=== PATIENT | male | born 1965 | race Caucasian/White ===

== ENCOUNTER 2020-01-27 13:49 | Emergency (ER) | payer BC, SELFPAY ==
[2020-01-27 13:50] VITALS: BP 123/80; PULSE 98; RESP 17; TEMP 36.6; O2SAT 97; BMI 28.1
--- NOTE | 2020-01-27 14:31 | ED.VIS.GEN ---
History of Present Illness Chief Complaint: Allergic Reaction Informant: Patient Narrative: Patient is a 54-year-old male who presents to the emergency department for suspected allergic reaction. He developed a rash earlier today mostly around his waist but has been over his arms and around his lips. He did have a similar episode last month that was treated with prednisone. He does not recall any new exposures. He felt short of breath at the initial onset but this has since gone away. No issues handling secretions. His rash is itchy. He denies any abdominal pain or nausea/vomiting. He has not tried taking anything for this yet. No chest pain. No diarrhea. No urinary symptoms. Denies any headache or neck stiffness. Past Medical History - Allergies and Home Meds Allergies/Adverse Reactions: Allergies No Known Allergies Allergy (Verified 01/27/20 13:50) Primary Care Physician: Yeny Young MD [STAFF PHYSICIAN] - 3-5 Days Prior records reviewed: Yes Past Medical History: - - Restless leg syndrome Review of Systems All systems negative except as indicated General: Denies: Chills, Fever, Sweats Eyes: Denies: Visual changes - bilaterally, Diplopia ENT: Denies: Rhinorrhea, Sore throat Cardiovascular: Denies: Chest pain, Palpitations Respiratory: Denies: Dyspnea, Cough, Dyspnea on exertion Gastrointestinal: Denies: Abdominal pain, Nausea, Vomiting, Diarrhea Genitourinary: Denies: Dysuria, Hematuria, Frequency Musculoskeletal: Denies: Back pain, Extremity Pain Skin: Reports: Rash. Denies: Wounds Neurological: Denies: Headache, Weakness, Numbness Allergy: Reports: Swelling of the mouth. Denies: Swelling of the tongue Physical Exam Vital Signs/Narrative: Vital Signs Temp Pulse Resp BP Pulse Ox 01/27/20 13:50 97.8 F 98 17 123/80 H 97 General: Well nourished, Well developed, No Acute Distress Head: Normocephalic, Atraumatic Eyes: Perrl, EOMI ENT: Moist mucous membranes, No rhinorrhea Neck: Supple, Nontender Cardiovascular: Regular rate, Regular rhythm, No murmurs Respiratory: No distress, CTA bilaterally, Chest nontender, - - Mild swelling of upper and lower lips. No oropharyngeal involvement. No stridor. Abdomen: Soft, Nontender, Nondistended, Normal bowel sounds Back: Nontender, Normal Inspection Extremities: Nontender, No edema Skin: Normal color, Rash - Erythematous raised rash around the waistband bilaterally. Also has a few spots of the upper extremities and back. Erythema surrounding the lips. Neurological: Alert, Oriented x3, Cranial nerves II-XII grossly intact, Normal Strength, Normal Sensation Psychological: Normal affect, Normal Mood Diagnostic/Tx/Re-eval - Medical Decision Making Patient presents to the ED for rash and lip swelling. It is itching. No known new exposures. Upon arrival to the emerge department vital signs within normal limits. He is not in any acute distress. No evidence of anaphylaxis. Will give a dose of Benadryl and steroid here in the ED. Will discharge home with similar treatment. Warning signs and symptoms for which to return to the ED are reviewed with him. He understands and is agreeable this plan. He does not have a PCP so he was provided one from the no doc list. Patient observed in the ED for over an hour and did not have any worsening symptoms. He does feel comfortable being discharged home at this time. He is to monitor for evidence of new exposures if he has any repeat symptoms. ED Disposition - Plan for ED Patient: Disposition: Home or Assisted Living Diagnosis: Allergic reaction Instructions: ED General Allergic Reactions Prescriptions: Prednisone 40 mg PO DAILY 4 Days #8 tab Prescription Printed Referrals: Yeny Young MD [STAFF PHYSICIAN] - 3-5 Days
[2020-01-27 14:36] VITALS: BP 123/80; PULSE 98; RESP 17; TEMP 36.6; O2SAT 97
[2020-01-27] MEDS: predniSONE 20 MG Tablet 40 MG PO (14:40)
[2020-01-27] MEDS: DiphenhydrAMINE 12.5 MG/5 ML UDC 25 MG PO (14:40)
[2020-01-27 14:46] VITALS: RESP 16
[2020-01-27 15:28] VITALS: BP 118/62; PULSE 71; RESP 15; O2SAT 98
== END 2020-01-27 15:30 | disposition home or self-care (01) ==
PROVIDERS: Emergency Provider Emergency Medicine
DX: T78.40XA Allergy, unspecified, initial encounter (principal); X58.XXXA Exposure to other specified factors, initial encounter
CPT/HCPCS: 87635; 99283; U0003

== ENCOUNTER → 2020-02-21 16:31 | Outpatient (CLI) | payer BC, SELFPAY ==
[2020-01-27 13:50] VITALS: BMI 28.1
--- NOTE | 2020-02-21 16:46 | RAD_ITS ---
STUDY: X-RAY - LEFT HAND REASON FOR EXAM: Male, 54 years old. LEFT HAND PAIN IN KNUCKLES TECHNIQUE: 3 view(s) of the hand. COMPARISON: None. FINDINGS: Normal radiocarpal articulation. Normal distal radioulnar joint. Normal visualized carpal bones. Normal carpal articulations Normal carpometacarpal articulation of the thumb. Normal second through fifth carpometacarpal joints. Normal metacarpi. Normal metacarpophalangeal joint of the thumb. Normal interphalangeal joint of the thumb. Normal proximal and distal phalanges of the thumb. Normal metacarpophalangeal joints of the second through fifth fingers. Normal proximal and distal interphalangeal joints of the second through fifth fingers. Normal phalanges of the second through fifth fingers. The soft tissue structures are unremarkable. RAD/Hand Min 3 Views IMPRESSION: Normal x-ray examination of the hand. Electronically Signed: Tobias Dinh MD at 17:00 EDT Tel , Service support ,
--- NOTE | 2020-02-21 16:48 | RAD_ITS ---
STUDY: X-RAY - RIGHT HAND REASON FOR EXAM: Male, 54 years old. RIGHT HAND PAIN IN KNUCKLES TECHNIQUE: 3 view(s) of the hand. COMPARISON: None. FINDINGS: Normal radiocarpal articulation. Normal distal radioulnar joint. Normal visualized carpal bones. Normal carpal articulations Normal carpometacarpal articulation of the thumb. Normal second through fifth carpometacarpal joints. Normal metacarpi. Normal metacarpophalangeal joint of the thumb. Normal interphalangeal joint of the thumb. Normal proximal and distal phalanges of the thumb. Normal metacarpophalangeal joints of the second through fifth fingers. Normal proximal and distal interphalangeal joints of the second through fifth fingers. Normal phalanges of the second through fifth fingers. The soft tissue structures are unremarkable. RAD/Hand Min 3 Views IMPRESSION: Normal x-ray examination of the hand. Electronically Signed: Tobias Dinh MD at 17:01 EDT Tel , Service support ,
[2020-02-21 17:08] LABS: Absolute Lymphocyte Count 1.31 X10^3/uL (0.83-4.51); Absolute Neutrophil Count 3.9 X10^3/uL (2.0-7.7); Basophil# 0.02 X10^3/uL; Basophil% 0.4 % (0-1); Eosinophil# 0.08 X10^3/uL; Eosinophils% 1.4 % (0-5); Hemoglobin 13.6 g/dL (13.0-16.5); Lymphocyte # 1.31 X10^3/ul (4.0); Lymphocyte % 23.1 % (19-41); Mean Corp Hgb Conc 31.6 g/dL (32-36); Mean Corpuscular Hgb 30.6 pg (27.0-32.0); Mean Corpuscular Volume 96.8 fL (80-94); Mean Platelet Vol. 10.6 fl (6.2-12.0); NRBC Flagged by Analyzer 0 % (0-5); Neutrophil # 3.86 X10^3/uL (2.7-7.7); Neutrophil % 67.9 % (47-70); Platelet Count 239 K/mm3 (150-450); RBC Distribution Width CV 12.8 % (11.6-14.6); RBC Distribution Width SD 45.4 fl (35.1-43.9); Red Blood Count 4.44 M/mm3 (4.6-6.2); White Blood Count 5.7 K/mm3 (4.4-11.0)
[2020-02-21 17:35] LABS: ALB/GLOB Ratio 1.2 RATIO (0.9-2.4); AST(SGOT) 14 U/L (15-37); Alanine Aminotransfer ALT/SGPT 34 U/L (16-61); Albumin, Serum 3.9 g/dL (3.2-5.0); Alkaline Phosphatase 95 U/L (45-117); Anion Gap 6 (5-15); BUN 12 mg/dL (7-18); BUN/Creat Ratio 11.4 RATIO (10-20); Calcium,Total 8.5 mg/dL (8.5-10.1); Chloride 106 mmol/L (98-107); Creatinine, Serum 1.05 mg/dL (0.70-1.30); EST Glomerular Filtration Rate 78 mL/min (>60); Est Glom Filt Rate - Afr Amer 95 mL/min (>60); Globulin 3.2 g/dL (2.2-4.2); Glucose 97 mg/dL (74-106); Potassium 3.7 mmol/L (3.5-5.1); Protein, Total 7.1 g/dL (6.4-8.2); Sodium Level 142 mmol/L (136-145); Thyroid Stim Hormone (TSH) 0.76 uIU/mL (0.358-3.74); Uric Acid 4.1 mg/dL (3.5-7.2)
== END ==
LOC: POLAB3 16:32 → RAD 16:46
PROVIDERS: PCP Family Medicine Geriatric Medicine; Referring Provider Family Medicine Geriatric Medicine; Visit Provider Family Medicine Geriatric Medicine
DX: M79.642 Pain in left hand (principal); M79.641 Pain in right hand; M10.9 Gout, unspecified; R53.83 Other fatigue; N39.0 Urinary tract infection, site not specified
CPT/HCPCS: 36415; 73130; 80053; 84443; 84550; 85025; 87086

== ENCOUNTER → 2020-04-12 16:30 | Outpatient (CLI) | payer BC, SELFPAY | PROVIDERS: PCP Family Medicine Geriatric Medicine; Referring Provider Family Medicine Geriatric Medicine; Visit Provider Family Medicine Geriatric Medicine | DX: R06.89 Other abnormalities of breathing (principal) | CPT/HCPCS: 87633; 87635; C9803; U0003 ==

== ENCOUNTER 2020-08-22 10:19 | Day surgery (SDC) | payer BC, SELFPAY ==
[2020-08-22] VITALS (7 sets, daily range): BP systolic 115–130; BP diastolic 80–85; PULSE 65–81; RESP 16; TEMP 36.2–37.1; O2SAT 97–100; BMI 24.7
[2020-08-22] MEDS: Lactated Ringers 1,000 ML 100 ML IV (11:14)
[2020-08-22] MEDS: Cefazolin 2 GM in 0.9% Normal Saline 100 ML IV (11:57)
--- NOTE | 2020-08-22 12:03 | HP.PCM_ITS ---
Problem List (1) Right ureteral calculus Status: Acute History of Present Illness Date of Admission: 08/22/20 Chief Complaint: Right ureteral calculi The patient is a 54 year old male with a obstructing right ureteral calculus today presents for ureteroscopy laser lithotripsy and stent placement. Past Medical History Allergies No Known Allergies Allergy (Verified 08/22/20 10:46) Home Medications: Ambulatory Orders Medication Instructions Recorded Allopurinol [Zyloprim] 300 mg PO DAILY 01/27/20 Aspirin [Aspirin, Baby] 81 mg PO DAILY@0800 01/27/20 Bupropion HCl [Bupropion Xl] 300 mg PO DAILY 01/27/20 Nam/D3/Mag11/Zinc/Hydraulic Design Engineer/Yury/Bor 1 ea PO BID 01/27/20 [Caltrate 600+D Plus Tablet] Citalopram [Celexa] 40 mg PO QHS 01/27/20 Sildenafil Citrate 100 mg PO PRN PRN 01/27/20 Topiramate 200 mg PO QHS 01/27/20 Tamsulosin HCl [Flomax] 0.4 mg PO DAILY 08/20/20 traZODone [Desyrel] 100 mg PO QHS 08/20/20 Surgical History: no surgical history Smoking Status: Never smoker Tobacco Use: Non-smoker Review of Systems Constitutional: Denies: Chills, Fever, Weight Change HEENT: Denies: Head Aches, Sinus Congestion, Sinus Drainage Cardiovascular: Denies: Chest Pain, Palpitations Respiratory: Denies: Cough, Shortness of breath at rest, Sputum production Gastrointestinal: Denies: Abdominal Pain, Nausea, Vomiting Genitourinary: Denies: Dysuria Musculoskeletal: Denies: Joint Pain, Joint Tenderness Skin: Denies: Rash, Wounds Neurological: Denies: Numbness, Tingling, Focal weakness Psychiatric: Denies: Anxiety, Depression, Homicidal Ideations, Suicidal Ideations Hematologic/ Lymphatic: Denies: Easy Bruising, Easy Bleeding VTE Information - Inpt Only VTE Present on Admission: No - Physical Exam Vitals/I&O's: Vital Signs Temp Pulse Resp BP Pulse Ox 98.7 F 81 16 128/80 H 98 08/22/20 10:50 08/22/20 10:50 08/22/20 10:50 08/22/20 10:50 08/22/20 10:50 Oxygen Delivery Method Room Air Weight: 74 kg Body Mass Index (BMI) 24.7 General: Alert, Oriented x3, Cooperative HEENT: Atraumatic, PERRLA, EOMI, Normocephalic Neck: Supple, No JVD, Negative Carotid Bruits Lungs: Clear to auscultation, Normal air movement Cardiovascular: Regular rate, No murmurs Abdomen: Bowel Sounds Present, Soft, Non Tender Extremities: No edema, Capillary Refill Less than 3 Seconds Skin: No rashes, No breakdown Musculoskeletal: No Tenderness to Palpation of Joints or Extremities Neurological: Cranial nerves II-XII grossly intact Psych/Mental Status: Normal Affect, Appropriate Microbiology Past 72 Hours 08/21/20 14:00 Interface Orders SARS-CoV-2 Antigen (Rapid) - Final Current Medications Cefazolin Sodium 2 gm/ Sodium (Chloride) 110 mls @ 150 mls/hr IV PREOP ONE Stop: 08/22/20 13:23 Lactated Ringer's () 1,000 mls @ 100 mls/hr IV .Q10H GARDEN[place] Last Admin: 08/22/20 11:14 Dose: 100 mls/hr Documented by: Assessment/Plan All Active Problems Right ureteral calculus (Acute) Plan to proceed with right ureteroscopy laser lithotripsy of stone and stent placement.
[2020-08-22] MEDS: Ketorolac 15 MG/ML Vial IV (12:06)
--- NOTE | 2020-08-22 12:07 | DCINST_ITS ---
Discharge Diet: No Restrictions Discharge Activity: Return to Normal Activity, May Not Drive - for 2 days. Additional Activity Instructions:: Please be aware that pain medications may cause nausea. You should typically eat light foods as you take your pain medication. Pain medication may cause constipation, if this is a problem for you, please discuss with your doctor. Allergies/Adverse Reactions: Allergies No Known Allergies Allergy (Verified 08/22/20 10:46) Medications to take at Discharge Allopurinol [Zyloprim] 300 mg PO DAILY 01/27/20 Aspirin [Aspirin, Baby] 81 mg PO DAILY@0800 01/27/20 Bupropion HCl [Bupropion Xl] 300 mg PO DAILY 01/27/20 Nam/D3/Mag11/Zinc/Fare Enforcement Officer/Yury/Bor [Caltrate 600+D Plus Tablet] 1 ea PO BID 01/27/20 Citalopram [Celexa] 40 mg PO QHS 01/27/20 Sildenafil Citrate 100 mg PO PRN PRN 01/27/20 Topiramate 200 mg PO QHS 01/27/20 Tamsulosin HCl [Flomax] 0.4 mg PO DAILY 08/20/20 traZODone [Desyrel] 100 mg PO QHS 08/20/20 Ciprofloxacin [Cipro] 500 mg PO BID #6 tab 08/22/20 Hydrocodone Bitart/Apap 5-325 [Oneco 5MG-325MG] 1 tablet PO Q4H PRN PRN 7 Days #14 tablet 08/22/20 The following prescriptions were given: Ciprofloxacin [Cipro] 500 mg PO BID #6 tab Transmission Status: Pending to [address] Hydrocodone Bitart/Apap 5-325 [Oneco 5MG-325MG] 1 tablet PO Q4H PRN PRN 7 Days #14 tablet PRN Reason: Pain Transmission Status: Received by [facility] Primary Care Physician: Shelton Galarza Chi, MD [Primary Care Provider] - Test Results: Test results from this visit will be discussed in further detail at your follow- up appointment, if applicable. Please Follow Up With: Juan Rojo MD When: please call to make an appointment.
--- NOTE | 2020-08-22 13:11 | OP.PCM_ITS ---
Problem List (1) Right ureteral calculus Status: Acute Report of Operation Date of Procedure: 08/22/20 Pre-Operative Diagnosis: Right ureteral calculi and right renal calculi Post-Operative Diagnosis: Same Surgery/Procedure Performed:: Cystoscopy, balloon dilation of the right ureter, retrograde pyelogram on the right side, right ureteroscopy laser lithotripsy of stones and right stent placement. Description of Surgical Findings:: This is a patient who presents to the hospital for treatment for an obstructing distal ureter calculi. I discussed with the patient how the surgery would be performed and we reviewed the risks and benefits of the surgery. The risk and benefits include the risk of failure to remove the stone completely and that the patient may need multiple procedures. We discussed the risk of an infection, the risk of bleeding. We discussed the very rare risk of serious complicated injury to the ureter. The patient understands that if the stone is not able to be removed safely that we may abort the procedure and place a stent. After full discussion and all questions address with the patient the consent form was signed the side was marked appropriately and the patient was taken back to the operating room for the procedure. The patient was taken back to the operating room. After induction of anesthesia by the anesthesiology team the patient was placed in dorsolithotomy position. The genitals were prepped and draped in usual sterile fashion. I went into the bladder with a 21 Romansh rigid cystourethroscope through the urethra. Upon entering the bladder I inspected the trigone the left and right ureteral orifice and the bladder itself. I then cannulated the right ureteral orifice and advanced a 0.038 Glidewire up into the kidney. Then over the Glidewire I advanced a 5 Fr Ureteral catheter and performed a retrograde pyelogram with about 10cc of contrast, to delineate the anatomy and identify the stone location. Then a ureteral balloon dilator was advanced over the wire and the distal ureter was balloon dilated with a 12 Fr x 5cm balloon dilator. After 3 minutes of dilating the ureter the balloon was backloaded off the 0.038 glidewir e then the safety wire was left in place. I then placed a second 0.038 Guidewire as a working wire and over the working 0.038 guidewire I went in with a Flexible 7.9fr ureteroscope. I was able to go inside with the 7.9Fr flexible utereroscope and I pulled out the working guidewire and then through the 7.9 fr flexible ureteroscope I ascended up the ureter with direct visualization until the stone was located, then I engaged the stone with laser lithotripsy using a 270miron laser fiber with energy setting of 6 Hertz and 0.6 J until the stone was lasered into tiny little pieces that should pass on their own. I also went up to the kidney and found another large stone and lasered the stone into little tiny pieces using the laser fiber energy settings were 10 Hz and 0.8 J., And then I worked my way down the ureter and we had the laser some more stones along the ureter, I removed the flexible ureteroscope and then went up with a semirigid ureteroscope and lasered some stones in the distal ureter. After successful laser lithotripsy of the stone and stone fragements, a retrograde pyelogram was performed with 10cc of contrast and no extravasation of contrast or perforation was identified in the ureter. I then backed out of the ureter left the wire in place and then over the 0.038 guidewire I placed a double coiled pigtail ureteral stent. The ureteral stent was advanced over the 0.038 guidewire under direct fluoroscopic guidance and direct cystoscopic visual guidance, once the stent was in good position I pulled the wire and the stent coiled in the kidney and bladder in good position. I then drained the patient's bladder and the cystoscope was removed and the patient was taken back to the recovery room in good position. The patient was given discharge instructions to call the office for instructions on when to come to the office to have the stent removed. Type of Anesthesia:: General Drains: stent right side - Admit VTE Documentation VTE Present on Admission: No VTE Mechan Device Prophylaxis: SCD's
[2020-08-22] MEDS: HYDROcodone Bitartrate/Apap 5/325 Tablet PO (15:16)
== END 2020-08-22 15:55 | disposition home or self-care (01) ==
LOC: SDC 10:19 → AC 10:19
PROVIDERS: PCP Family Medicine Geriatric Medicine; Referring Provider Urology; Visit Provider Urology
PROC: 0TJ98ZZ Inspection of Ureter, Via Natural or Artificial Opening Endoscopic (ICD-10-PCS; CPT 52352; principal; 2020-08-22 12:30)
DX: N13.2 Hydronephrosis with renal and ureteral calculous obstruction (principal); E78.00 Pure hypercholesterolemia, unspecified; G25.81 Restless legs syndrome; F32.9 Major depressive disorder, single episode, unspecified; F41.9 Anxiety disorder, unspecified; R01.1 Cardiac murmur, unspecified; Z20.822 Contact with and (suspected) exposure to COVID-19; Z79.82 Long term (current) use of aspirin; Z79.899 Other long term (current) drug therapy
CPT/HCPCS: 52356; 76000; 87426; C9803; J7120; C1758; C1769; C2617; J2405

== ENCOUNTER → 2020-08-27 14:55 | Outpatient (CLI) | payer BC, SELFPAY ==
[2020-08-22 10:50] VITALS: BMI 24.7
[2020-08-27 15:51] LABS: Absolute Lymphocyte Count 1.05 X10^3/uL (0.83-4.51); Absolute Neutrophil Count 5.3 X10^3/uL (2.0-7.7); Basophil# 0.03 X10^3/uL; Basophil% 0.4 % (0-1); Eosinophil# 0.09 X10^3/uL; Eosinophils% 1.3 % (0-5); Hematocrit 41.8 % (40-54); Hemoglobin 13.3 g/dL (13.0-16.5); Lymphocyte # 1.05 X10^3/ul (0.83-4.51); Lymphocyte % 15.4 % (19-41); Mean Corp Hgb Conc 31.8 g/dL (32-36); Mean Corpuscular Hgb 30.9 pg (27.0-32.0); Mean Platelet Vol. 11.1 fl (6.2-12.0); Monocyte# 0.32 X10^3/uL; Monocyte% 4.7 % (0-10); NRBC Flagged by Analyzer 0 % (0-5); Neutrophil # 5.32 X10^3/uL (2.7-7.7); Neutrophil % 78.1 % (47-70); Platelet Count 280 K/mm3 (150-450); RBC Distribution Width SD 43.7 fl (35.1-43.9); Red Blood Count 4.31 M/mm3 (4.6-6.2); White Blood Count 6.8 K/mm3 (4.4-11.0)
[2020-08-27 16:07] LABS: ALB/GLOB Ratio 1.1 RATIO (0.9-2.4); AST(SGOT) 8 U/L (15-37); Alanine Aminotransfer ALT/SGPT 25 U/L (16-61); Albumin, Serum 3.5 g/dL (3.2-5.0); Alkaline Phosphatase 101 U/L (45-117); Anion Gap 6 (5-15); BUN 12 mg/dL (7-18); Calcium,Total 8.9 mg/dL (8.5-10.1); Chloride 108 mmol/L (98-107); Creatinine, Serum 1.09 mg/dL (0.70-1.30); EST Glomerular Filtration Rate 75 mL/min (>60); Est Glom Filt Rate - Afr Amer 90 mL/min (>60); Globulin 3.2 g/dL (2.2-4.2); Glucose 94 mg/dL (74-106); Potassium 3.6 mmol/L (3.5-5.1); Protein, Total 6.7 g/dL (6.4-8.2); Sodium Level 140 mmol/L (136-145); Thyroid Stim Hormone (TSH) 0.16 uIU/mL (0.358-3.74); Uric Acid 3.4 mg/dL (3.5-7.2)
[2020-08-28 09:46] LABS: T3 Uptake 38 % (33-40); T4 Free Direct 0.99 ng/dL (0.76-1.46)
== END ==
PROVIDERS: PCP Family Medicine Geriatric Medicine; Visit Provider Family Medicine Geriatric Medicine
DX: F52.8 Other sexual dysfunction not due to a substance or known physiological condition (principal); M10.9 Gout, unspecified; R53.83 Other fatigue; E03.9 Hypothyroidism, unspecified
CPT/HCPCS: 36415; 80053; 84403; 84439; 84443; 84479; 84550; 85025

== ENCOUNTER → 2021-02-25 14:57 | Outpatient (CLI) | payer BC, SELFPAY ==
[2021-02-25 16:27] LABS: Absolute Lymphocyte Count 1.67 X10^3/uL (0.83-4.51); Basophil# 0.04 X10^3/uL; Basophil% 0.6 % (0-1); Eosinophil# 0.11 X10^3/uL; Eosinophils% 1.5 % (0-5); Hemoglobin 13.7 g/dL (13.0-16.5); Lymphocyte # 1.67 X10^3/ul (0.83-4.51); Mean Corp Hgb Conc 31.9 g/dL (32-36); Mean Corpuscular Volume 97.3 fL (80-94); Mean Platelet Vol. 11.3 fl (6.2-12.0); Monocyte# 0.44 X10^3/uL; Monocyte% 6.1 % (0-10); NRBC Flagged by Analyzer 0 % (0-5); Neutrophil # 4.95 X10^3/uL (2.7-7.7); Neutrophil % 68.2 % (47-70); Platelet Count 228 K/mm3 (150-450); RBC Distribution Width SD 46.7 fl (35.1-43.9); Red Blood Count 4.42 M/mm3 (4.6-6.2); White Blood Count 7.3 K/mm3 (4.4-11.0)
[2021-02-25 17:28] LABS: ALB/GLOB Ratio 1.1 RATIO (0.9-2.4); AST(SGOT) 8 U/L (15-37); Alanine Aminotransfer ALT/SGPT 23 U/L (16-61); Albumin, Serum 3.6 g/dL (3.2-5.0); Alkaline Phosphatase 111 U/L (45-117); Anion Gap 6 (5-15); BUN 12 mg/dL (7-18); BUN/Creat Ratio 10.2 RATIO (10-20); Calcium,Total 8.7 mg/dL (8.5-10.1); Chloride 109 mmol/L (98-107); Creatinine, Serum 1.18 mg/dL (0.70-1.30); EST Glomerular Filtration Rate 68 mL/min (>60); Est Glom Filt Rate - Afr Amer 82 mL/min (>60); Globulin 3.3 g/dL (2.2-4.2); Glucose 100 mg/dL (74-106); PSA,Total - Annual Screen 2.75 ng/mL (0.00-4.00); Potassium 3.6 mmol/L (3.5-5.1); Protein, Total 6.9 g/dL (6.4-8.2); Sodium Level 142 mmol/L (136-145); Thyroid Stim Hormone (TSH) 0.51 uIU/mL (0.358-3.74); Uric Acid 4.2 mg/dL (3.5-7.2)
== END ==
PROVIDERS: PCP Family Medicine Geriatric Medicine; Visit Provider Family Medicine Geriatric Medicine
DX: R53.83 Other fatigue (principal); F52.8 Other sexual dysfunction not due to a substance or known physiological condition; M10.9 Gout, unspecified; Z12.5 Encounter for screening for malignant neoplasm of prostate
CPT/HCPCS: 36415; 80053; 84153; 84403; 84443; 84550; 85025; G0103

== ENCOUNTER → 2021-04-18 16:31 | Outpatient (CLI) | payer BC, SELFPAY ==
--- NOTE | 2021-04-18 16:33 | RAD_ITS ---
STUDY: X-RAY CHEST REASON FOR EXAM: Male, 55 years old. CHEST PAIN TECHNIQUE: PA and lateral views of the chest. COMPARISON: None. FINDINGS: The lungs are clear and expanded. There is no demonstrated pleural abnormality. Normal size heart. Normal mediastinum and rhonda. Normal visualized pulmonary arteries. Normal visualized aortic arch and descending thoracic aorta. Normal visualized thoracic spine. Normal visualized ribs, clavicles, and shoulders. There is no demonstrated abnormality of the visualized soft tissue structures of the upper abdomen. RAD/Chest PA and Lateral IMPRESSION: Normal x-ray examination of the chest. Electronically Signed: Tobias Dinh MD at 17:03 EST Tel , Service support ,
== END ==
PROVIDERS: PCP Family Medicine Geriatric Medicine; Referring Provider Family Medicine Geriatric Medicine; Visit Provider Family Medicine Geriatric Medicine
DX: R07.9 Chest pain, unspecified (principal)
CPT/HCPCS: 71046

== ENCOUNTER 2021-06-27 14:39 | Outpatient (CLI) | payer BC, SELFPAY ==
[2021-06-27 15:38] LABS: Absolute Lymphocyte Count 1.95 X10^3/uL (0.83-4.51); Absolute Neutrophil Count 3.6 X10^3/uL (2.0-7.7); Basophil# 0.03 X10^3/uL; Basophil% 0.5 % (0-1); Eosinophil# 0.13 X10^3/uL; Eosinophils% 2.1 % (0-5); Hematocrit 38.6 % (40-54); Lymphocyte # 1.95 X10^3/ul (0.83-4.51); Lymphocyte % 32.1 % (19-41); Mean Corp Hgb Conc 33.7 g/dL (32-36); Mean Corpuscular Hgb 31.9 pg (27.0-32.0); Mean Corpuscular Volume 94.8 fL (80-94); Mean Platelet Vol. 11.3 fl (6.2-12.0); Monocyte% 6.6 % (0-10); NRBC Flagged by Analyzer 0 % (0-5); Neutrophil # 3.55 X10^3/uL (2.7-7.7); Neutrophil % 58.4 % (47-70); Platelet Count 190 K/mm3 (150-450); RBC Distribution Width CV 13.2 % (11.6-14.6); RBC Distribution Width SD 46.5 fl (35.1-43.9); Red Blood Count 4.07 M/mm3 (4.6-6.2); White Blood Count 6.1 K/mm3 (4.4-11.0)
[2021-06-27 15:58] LABS: Anion Gap 4 (5-15); BUN 14 mg/dL (7-18); BUN/Creat Ratio 15.2 RATIO (10-20); Calcium,Total 8.5 mg/dL (8.5-10.1); Chloride 112 mmol/L (98-107); Creatinine, Serum 0.92 mg/dL (0.70-1.30); EST Glomerular Filtration Rate 90 mL/min (>60); Est Glom Filt Rate - Afr Amer 109 mL/min (>60); Glucose 101 mg/dL (74-106); Potassium 3.5 mmol/L (3.5-5.1); Sodium Level 141 mmol/L (136-145)
== END 2021-06-27 23:59 | disposition home or self-care (01) ==
LOC: POLAB3 14:40
PROVIDERS: PCP Family Medicine Geriatric Medicine; Visit Provider Family Medicine Geriatric Medicine
DX: R19.7 Diarrhea, unspecified (principal); N39.0 Urinary tract infection, site not specified
CPT/HCPCS: 36415; 80048; 85025; 87086

== ENCOUNTER 2021-07-26 12:48 | Outpatient (CLI) | payer BC, SELFPAY ==
--- NOTE | 2021-07-26 13:45 | RAD_ITS ---
STUDY: X-RAY - ABDOMEN/PELVIS REASON FOR EXAM: Male, 55 years old. NAUSEA AND SOME VOMITTING. HX OF KIDNEY STONES. TECHNIQUE: Two AP supine views of the abdomen and pelvis. COMPARISON: None. FINDINGS: Normal visualized lung bases. There is an unremarkable bowel gas pattern. There is no demonstrated free abdominal air. The visualized liver, spleen are grossly normal in size and morphology. There is a 6 mm calcific opacity at lower pole of the left kidney suggesting a stone. Normal soft tissue structures. Normal visualized osseous structures. RAD/Abdomen Single View IMPRESSION: Left kidney stone measures 6 mm. Electronically Signed: Marko Rob MD at 23:08 EDT ,
--- NOTE | 2021-07-26 13:45 | RAD_ITS ---
STUDY: X-RAY CHEST REASON FOR EXAM: Male, 55 years old. COUGH, SOB AND NAUSEA TECHNIQUE: Frontal and lateral views of the chest. COMPARISON: 04/18/2021. FINDINGS: There is a calcified granuloma in the right middle lobe measures 5 mm. Is stable since the previous study There is no demonstrated pleural abnormality. Normal size heart. Normal mediastinum and rhonda. Normal visualized pulmonary arteries. Normal visualized aortic arch and descending thoracic aorta. Normal visualized thoracic spine. Normal visualized ribs, clavicles, and shoulders. There is no demonstrated abnormality of the visualized soft tissue structures of the upper abdomen. RAD/Chest PA and Lateral IMPRESSION: Normal x-ray examination of the chest. Electronically Signed: Marko Rob MD at 23:14 EDT ,
--- NOTE | 2021-07-27 08:07 | PFT ---
INTRODUCTION: The patient is a 55-year-old male who presents for pulmonary function studies secondary to a diagnosis of shortness of breath. Respiratory therapy reported good patient effort. Bronchodilators were used during testing. INTERPRETATION: Forced expiration spirometry demonstrates no evidence of a large airways obstructive ventilatory defect. There was no significant response to aerosolized bronchodilators. Spirograms are of good quality and plateau normally. Body plethysmography was performed and reveals lung volumes to be within normal limits. Diffusing capacity by single breath CO is likewise within normal limits. IMPRESSION: Grossly normal pulmonary function studies.
== END 2021-07-26 23:59 | disposition home or self-care (01) ==
PROVIDERS: PCP Family Medicine Geriatric Medicine; Referring Provider Family Medicine Geriatric Medicine; Visit Provider Family Medicine Geriatric Medicine
DX: R05.9 Cough, unspecified (principal); R11.0 Nausea; R06.02 Shortness of breath
CPT/HCPCS: 71046; 74018; 94060; 94726; 94729

== ENCOUNTER → 2021-08-23 | Outpatient (CLI) | payer BC, SELFPAY ==
--- NOTE | 2021-08-23 12:52 | CT_ITS ---
INDICATION: CALCULUS OF KIDNEY EXAMINATION: CT ABDOMEN AND PELVIS WITHOUT CONTRAST - CT Abdomen And Pelvis W/O Contrast Injection TECHNIQUE: Helically acquired images were obtained of the abdomen and pelvis without oral or IV contrast. A radiation dose optimization technique was used for this scan. IV Contrast dosage and agent: None. Oral contrast: None. COMPARISON: None. FINDINGS: LOWER CHEST: Focal calcifications visualized in the left lower lung field, no evidence of focal lung infiltrates or consolidation. . No cardiomegaly or pericardial effusion. LIVER: Homogeneous. No focal mass. GALLBLADDER AND BILIARY TREE: No calcified gallstones. No gallbladder distension or wall edema. No intra- or extrahepatic biliary ductal dilation. PANCREAS: No focal cystic or solid mass. SPLEEN: Normal size without focal cystic or solid mass. ADRENAL GLANDS: No nodules. KIDNEYS AND URETERS: 0.7 cm calcification/stone visualized in the lower pole of the left kidney. 0.3 cm calcification visualized in the upper pole of the left kidney. Normal renal size and position. No hydronephrosis. PERITONEUM: No ascites or free air. No other fluid collection. BOWEL: No evidence of acute appendicitis. No stomach or bowel distension. No focal inflammatory change. LYMPH NODES: No enlarged mesenteric or retroperitoneal lymph nodes. VESSELS: Aorta is non-dilated. URINARY BLADDER: Unremarkable. REPRODUCTIVE ORGANS: Prominent prostate gland is visualized with subtle scattered calcifications. ABDOMINAL WALL: No discrete abdominal or pelvic wall hernia. With subtle bilateral inguinal hernias seen. BONES: No lytic or blastic abnormality. CT/Abdomen/Pelvis without Cont IMPRESSION: No evidence of hydronephrosis or hydroureter. 0.3 cm calcification visualized in the upper pole of the left kidney. 0.7 cm calcification/stone visualized in the lower pole of the left kidney. Prominence of the prostate gland seen. Electronically Signed: Darin Torres MD at 15:49 EDT Reading Location ID and State: [facility] / [place] Tel , Service support ,
== END | disposition home or self-care (01) ==
PROVIDERS: PCP Family Medicine Geriatric Medicine; Visit Provider Urology
DX: N20.0 Calculus of kidney (principal)
CPT/HCPCS: 74176

== ENCOUNTER → 2021-08-29 | Outpatient (CLI) | payer BC, SELFPAY ==
[2021-08-29 14:52] LABS: Absolute Lymphocyte Count 1.77 X10^3/uL (0.83-4.51); Absolute Neutrophil Count 4.5 X10^3/uL (2.0-7.7); Basophil# 0.03 X10^3/uL; Basophil% 0.4 % (0-1); Eosinophil# 0.15 X10^3/uL; Eosinophils% 2.2 % (0-5); Hematocrit 40.9 % (40-54); Hemoglobin 13.4 g/dL (13.0-16.5); Lymphocyte # 1.77 X10^3/ul (0.83-4.51); Lymphocyte % 25.6 % (19-41); Mean Corp Hgb Conc 32.8 g/dL (32-36); Mean Corpuscular Hgb 31.6 pg (27.0-32.0); Mean Corpuscular Volume 96.5 fL (80-94); Mean Platelet Vol. 11.2 fl (6.2-12.0); Monocyte# 0.43 X10^3/uL; Monocyte% 6.2 % (0-10); NRBC Flagged by Analyzer 0 % (0-5); Neutrophil % 65.2 % (47-70); Platelet Count 211 K/mm3 (150-450); RBC Distribution Width CV 13.2 % (11.6-14.6); RBC Distribution Width SD 47.7 fl (35.1-43.9); Red Blood Count 4.24 M/mm3 (4.6-6.2); White Blood Count 6.9 K/mm3 (4.4-11.0)
[2021-08-29 15:18] LABS: ALB/GLOB Ratio 1.3 RATIO (0.9-2.4); AST(SGOT) 10 U/L (15-37); Alanine Aminotransfer ALT/SGPT 27 U/L (16-61); Albumin, Serum 3.6 g/dL (3.2-5.0); Alkaline Phosphatase 92 U/L (45-117); Anion Gap 4 (5-15); BUN 14 mg/dL (7-18); BUN/Creat Ratio 11.9 RATIO (10-20); Calcium,Total 8.1 mg/dL (8.5-10.1); Chloride 111 mmol/L (98-107); Creatinine, Serum 1.18 mg/dL (0.70-1.30); EST Glomerular Filtration Rate 68 mL/min (>60); Est Glom Filt Rate - Afr Amer 82 mL/min (>60); Globulin 2.8 g/dL (2.2-4.2); Glucose 120 mg/dL (74-106); Potassium 3.3 mmol/L (3.5-5.1); Protein, Total 6.4 g/dL (6.4-8.2); Sodium Level 142 mmol/L (136-145); Thyroid Stim Hormone (TSH) 0.79 uIU/mL (0.358-3.74); Uric Acid 4.5 mg/dL (3.5-7.2)
== END | disposition home or self-care (01) ==
LOC: POLAB3 13:23
PROVIDERS: PCP Family Medicine Geriatric Medicine; Visit Provider Family Medicine Geriatric Medicine
DX: F52.8 Other sexual dysfunction not due to a substance or known physiological condition (principal); M10.9 Gout, unspecified; R53.83 Other fatigue
CPT/HCPCS: 36415; 80053; 84403; 84443; 84550; 85025

== ENCOUNTER → 2021-09-12 | Outpatient (CLI) | payer BC, SELFPAY ==
--- NOTE | 2021-09-12 10:44 | EKG12_ITS ---
Test Reason : PREOP Blood Pressure : / mmHG Vent. Rate : 075 BPM Atrial Rate : 075 BPM P-R Int : 174 ms QRS Dur : 112 ms QT Int : 402 ms P-R-T Axes : 051 013 036 degrees QTc Int : 448 ms Normal sinus rhythm Nonspecific T wave abnormality Abnormal ECG Confirmed by MUSA XIAO, ANDRE ([id number]), medical transcription editor RENO TAYLOR ([id number]) on 09/13/2021 11:46:23 AM Referred By: Juan Rojo Confirmed By:ANDRE VIGIL MD
[2021-09-12 11:57] LABS: Hematocrit 41.4 % (40-54); Hemoglobin 13.2 g/dL (13.0-16.5); Mean Corp Hgb Conc 31.9 g/dL (32-36); Mean Corpuscular Hgb 31.1 pg (27.0-32.0); Mean Corpuscular Volume 97.4 fL (80-94); Mean Platelet Vol. 11.1 fl (6.2-12.0); Platelet Count 238 K/mm3 (150-450); RBC Distribution Width CV 13.2 % (11.6-14.6); RBC Distribution Width SD 47.4 fl (35.1-43.9); Red Blood Count 4.25 M/mm3 (4.6-6.2); White Blood Count 7.4 K/mm3 (4.4-11.0)
[2021-09-12 12:16] LABS: Anion Gap 4 (5-15); BUN 16 mg/dL (7-18); BUN/Creat Ratio 15.1 RATIO (10-20); Calcium,Total 8.7 mg/dL (8.5-10.1); Chloride 114 mmol/L (98-107); Creatinine, Serum 1.06 mg/dL (0.70-1.30); EST Glomerular Filtration Rate 77 mL/min (>60); Est Glom Filt Rate - Afr Amer 93 mL/min (>60); Glucose 86 mg/dL (74-106); Potassium 3.4 mmol/L (3.5-5.1); Sodium Level 144 mmol/L (136-145)
== END | disposition home or self-care (01) ==
PROVIDERS: PCP Family Medicine Geriatric Medicine; Referring Provider Urology; Visit Provider Urology
DX: Z01.810 Encounter for preprocedural cardiovascular examination (principal); Z01.812 Encounter for preprocedural laboratory examination; Z20.822 Contact with and (suspected) exposure to COVID-19
CPT/HCPCS: 36415; 80048; 85027; 87426; 93005; C9803

== ENCOUNTER 2021-09-20 17:49 | Observation (INO) | payer BC, SELFPAY ==
[2021-09-20] VITALS (7 sets, daily range): BP systolic 103–121; BP diastolic 70–79; PULSE 61–82; RESP 14–20; TEMP 36.3; O2SAT 89–98; BMI 27.3
--- NOTE | 2021-09-20 18:01 | NURSING ---
Called [facility] to inquire if they were aware of pt coming as a direct admit. They confirmed he will be directly admitted to [id number]. noc analyst Stacy made aware.
--- NOTE | 2021-09-20 20:10 | EDS_ITS ---
HPI History of Present Illness Chief Complaint: Shortness of Breath Informant: patient Onset/Context/Timing Onset: Today Context: gradual Timing: Continuous Quality: Positive for Dyspnea on exertion Worsened by: Exertion Relieved by: Oxygen Associated Symptoms cough; Negative for rhinorrhea, ear pain, fever, sore throat, chills, clear sputum, white sputum, yellow sputum or green sputum Chest Pain: Positive for Tightness Narrative Narrative: Patient presents with shortness of breath that began today. Patient states that it came on gradually. Patient had lithotripsy done this morning and was having some shortness of breath after that. Patient states he had COVID last winter and has had some problems with breathing intermittently since that time. Patient admits to a cough but denies any sputum production. Patient denies any fevers or chills. Patient denies any sore throat or rhinorrhea. Patient admits to some tightness in his chest. [facility] Medical History (Updated 09/20/21 @ 23:[address] Fransisco Sun, DO) Anxiety and depression BPH (benign prostatic hyperplasia) COVID Kidney stone Overactive bladder Rotator cuff arthropathy of left shoulder Sleep apnea Home Medications allopurinol 300 mg PO DAILY 01/27/20 [History Last Taken 09/19/21 11:30] aspirin 81 mg PO DAILY@0800 01/27/20 [History Last Taken 09/19/21 11:30] bupropion HCl 300 mg PO DAILY 01/27/20 [History Last Taken 09/19/21 11:30] [id number] 1 ea PO BID 01/27/20 [History Last Taken 09/19/21 11:30] citalopram 40 mg PO QHS 01/27/20 [History Last Taken 09/19/21 23:50] topiramate 200 mg PO QHS 01/27/20 [History Last Taken 09/19/21 23:30] tamsulosin 0.4 mg PO DAILY 08/20/20 [History Last Taken 09/19/21 11:30] trazodone 100 mg PO QHS 08/20/20 [History Last Taken 09/19/21 23:30] Allergy/AdvReac Type Severity Reaction Status Date / Time anti-inflammatory AdvReac Hives Uncoded 09/20/21 18:32 Surgical History (Updated 09/20/21 @ 20:[address] Fransisco Sun DO) Hx of lithotripsy Social History Smoking Status: Never smoker ROS ROS ED Constitutional Constitutional ED: Denies chills or fever(s) Eyes Eyes: Denies blurry vision or change in vision ENT ENT ED: Denies rhinorrhea or sore throat Cardiovascular Cardiovascular: Reports chest pain; Denies palpitations Respiratory/Chest Respiratory/Chest: Reports cough and dyspnea Gastrointestinal Gastrointestinal: Denies nausea or vomiting Genitourinary Genitourinary ED: Denies dysuria or hematuria Musculoskeletal Musculoskeletal: Reports back pain; Denies neck pain Integumentary Denies abscess or rash Neurologic Neurologic: Denies headache(s) or weakness Allergic/Immunologic Allergic/Immunologic ED: Denies mouth swelling or urticaria EXAM Physical Exam Const Vital Signs: 09/20/21 17:50 09/20/21 19:18 09/20/21 19:20 Temperature 97.3 F L Temperature Source Temporal Pulse Rate 61 77 Respiratory Rate 14 18 Respiratory Effort Short of Breath Respiratory Depth Normal Respiratory Pattern Normal Blood Pressure 104/70 121/75 H Blood Pressure Mean 81 90 Pulse Ox 89 95 Oxygen Delivery Method Room Air Room Air Room Air Oxygen Flow Rate (L/min) 09/20/21 20:21 09/20/21 20:24 09/20/21 21:22 Temperature Temperature Source Pulse Rate 77 82 Respiratory Rate 20 H 20 H Respiratory Effort Normal Short of Breath Respiratory Depth Normal Respiratory Pattern Normal Blood Pressure 119/79 Blood Pressure Mean 92 Pulse Ox 96 96 Oxygen Delivery Method Nasal Cannula Nasal Cannula Nasal Cannula Oxygen Flow Rate (L/min) 2 2 2 09/20/21 23:07 Temperature Temperature Source Pulse Rate 78 Respiratory Rate 16 Respiratory Effort Respiratory Depth Respiratory Pattern Blood Pressure 103/78 Blood Pressure Mean 86 Pulse Ox 98 Oxygen Delivery Method Room Air Oxygen Flow Rate (L/min) Positive well nourished and well developed General Appearance ED: well developed and NAD HEENT Reports moist mucous membranes Neck supple and no JVD Resp normal respiratory effort Auscultation: diminished lung sounds diffuse Cardio regular rate and regular rhythm GI non-tender Palpation: soft Neuro oriented x3, CN's II-XII intact bilaterally and no sensory deficits noted Sensorium / Orientation: alert Motor Exam: strength 5/5 throughout Psych mental status grossly normal MDM MDM MDM Narrative Medical decision making narrative: Portable chest x-ray was obtained. There is 1 view. On my interpretation, there is a left lower lobe infiltrate. Bony thorax is normal. There is no cardiomegaly. Radiologist also interpreted the x-rays and agrees. CBC was within normal limits. D-dimer was normal. Comprehensive metabolic profile was within normal limits. High-sensitivity troponin was less than 3. Urinalysis shows hematuria but there is no evidence of urinary tract infection. Patient was given a DuoNeb aerosol here. Blood cultures were obtained. Patient was given Rocephin and Zithromax. I discussed case with Dr. Rojo since he did his surgery today. He would recommend having the patient go home on oral antibiotics. I attempted to ambulate the patient after his antibiotics were infused. His oxygen saturations dropped to 88% on room air while ambulating. Because of this, patient will need to be admitted to the hospital. Dr. Rojo was notified. He states he does not take care of pneumonia and recommended admitting the patient to the hospital. He stated that he did not want to be called back on this patient tonight. Case was discussed with the hospitalist. He will admit the patient for observation. Patient understood and was agreeable with the plan. All questions were answered. Lab Data Attestation: I reviewed the patient's lab results. Labs: Laboratory Results - last 24 hr 09/20/21 09/20/21 09/20/21 20:23 20:23 20:23 WBC 10.7 RBC 4.18 L Hgb 13.0 Hct 40.2 MCV 96.2 H MCH 31.1 MCHC 32.3 RDW Std Deviation 46.7 H RDW Coeff of She 13.2 Plt Count 219 MPV 11.2 Immature Gran % (Auto) 0.400 Neut % (Auto) 94.1 H Lymph % (Auto) 4.7 L [place] % (Auto) 0.7 Eos % (Auto) 0.0 Baso % (Auto) 0.1 Absolute Neuts (auto) 10.1 H Absolute Lymphs (auto) 0.51 L Nucleated RBC % 0 Differential Comment SCANNED D-Dimer Quant (PE/DVT) 0.30 Sodium 141 Potassium 4.6 Chloride 111 H Carbon Dioxide 24.0 Anion Gap 6 BUN 15 Creatinine 1.11 Estim Creat Clear Calc 71.89 Est GFR (MDRD) Af Amer 88 Est GFR (MDRD) Non-Af 73 BUN/Creatinine Ratio 13.5 Glucose 120 H Calcium 8.7 Total Bilirubin 0.40 AST 22 ALT 26 Alkaline Phosphatase 93 Troponin I High Sens < 3 L Total Protein 6.7 Albumin 3.4 Globulin 3.3 Albumin/Globulin Ratio 1.0 Urine Color Urine Clarity Urine pH Ur Specific [place] Urine Protein Urine Glucose (UA) Urine Ketones Urine Occult Blood Urine Nitrite Urine Bilirubin Urine Urobilinogen Ur Leukocyte Esterase Urine RBC Urine WBC Ur Squamous Epith Cells Amorphous Sediment Urine Bacteria Urine Mucus 09/20/21 21:00 WBC RBC Hgb Hct MCV MCH MCHC RDW Std Deviation RDW Coeff of She Plt Count MPV Immature Gran % (Auto) Neut % (Auto) Lymph % (Auto) [place] % (Auto) Eos % (Auto) Baso % (Auto) Absolute Neuts (auto) Absolute Lymphs (auto) Nucleated RBC % Differential Comment D-Dimer Quant (PE/DVT) Sodium Potassium Chloride Carbon Dioxide Anion Gap BUN Creatinine Estim Creat Clear Calc Est GFR (MDRD) Af Amer Est GFR (MDRD) Non-Af BUN/Creatinine Ratio Glucose Calcium Total Bilirubin AST ALT Alkaline Phosphatase Troponin I High Sens Total Protein Albumin Globulin Albumin/Globulin Ratio Urine Color [place]ora Urine Clarity Cloudy Urine pH 7.0 Ur Specific [place] 1.010 Urine Protein 30 H Urine Glucose (UA) Normal Urine Ketones 5 H Urine Occult Blood 250 H Urine Nitrite Negative Urine Bilirubin Negative Urine Urobilinogen Normal Ur Leukocyte Esterase 25 H Urine RBC > 100 SEEN Urine WBC 0-5 SEEN Ur Squamous Epith Cells 0-5 SEEN Amorphous Sediment 1+ PHOS Urine Bacteria RARE Urine Mucus 0 SEEN Radiography Chest X-Ray - ED: 1 View, Read by ED Physician, Read by Radiologist and Left Infiltrate Diagnostic Testing: Clinical Impression(s) from Imaging Studies Chest X-Ray 09/20/21 20:52 IMPRESSION: Hazy increased density left lower lung may be due to pneumonia, edema, or atelectasis. Electronically Signed: David Rodriguez MD at 21:15 EDT , Discharge Plan Dx/Rx/DC Orders Clinical Impression: Pneumonia, Hypoxia Disposition Disposition: Acute Care Hospital [facility]
[2021-09-20] MEDS: Ipratropium/Albuterol Sulfate 3 ML AMPUL.NEB INHALATION (20:24)
[2021-09-20 20:37] LABS: Absolute Lymphocyte Count 0.51 X10^3/uL (0.83-4.51); Absolute Neutrophil Count 10.1 X10^3/uL (2.0-7.7); Basophil# 0.01 X10^3/uL; Basophil% 0.1 % (0-1); Hematocrit 40.2 % (40-54); Lymphocyte # 0.51 X10^3/ul (0.83-4.51); Lymphocyte % 4.7 % (19-41); Mean Corp Hgb Conc 32.3 g/dL (32-36); Mean Corpuscular Hgb 31.1 pg (27.0-32.0); Mean Corpuscular Volume 96.2 fL (80-94); Mean Platelet Vol. 11.2 fl (6.2-12.0); Monocyte# 0.07 X10^3/uL; Monocyte% 0.7 % (0-10); NRBC Flagged by Analyzer 0 % (0-5); Neutrophil # 10.11 X10^3/uL (2.7-7.7); Neutrophil % 94.1 % (47-70); POSITIVE DIFFERENTIAL YES; Platelet Count 219 K/mm3 (150-450); RBC Distribution Width CV 13.2 % (11.6-14.6); RBC Distribution Width SD 46.7 fl (35.1-43.9); Red Blood Count 4.18 M/mm3 (4.6-6.2); White Blood Count 10.7 K/mm3 (4.4-11.0)
[2021-09-20 20:43] LABS: Differential Indicated SCAN CRITERIA MET
--- NOTE | 2021-09-20 20:52 | RAD_ITS ---
EXAM: XR CHEST, 1 VIEW CLINICAL INDICATION: Dyspnea TECHNIQUE: Frontal view of the chest. This report was created using [email or web address] report generation technology. COMPARISON: 07/26/2021. FINDINGS: LUNGS AND PLEURAL SPACES: Hazy increased density left lower lung may be due to pneumonia, edema, or atelectasis. Low lung volumes limit the exam. No pneumothorax. No effusion. HEART: Unremarkable. Cardiac silhouette not enlarged. MEDIASTINUM: Central airways and mediastinal contour are unremarkable. BONES/JOINTS: Unremarkable. SOFT TISSUES: Unremarkable. RAD/Chest 1 View (Portable) IMPRESSION: Hazy increased density left lower lung may be due to pneumonia, edema, or atelectasis. Electronically Signed: David Rodriguez MD at 21:15 EDT ,
[2021-09-20 21:05] LABS: Mucous, Urine 0 SEEN /hpf (<or=2+)
[2021-09-20 21:12] LABS: AST(SGOT) 22 U/L (15-37); Alanine Aminotransfer ALT/SGPT 26 U/L (16-61); Albumin, Serum 3.4 g/dL (3.2-5.0); Alkaline Phosphatase 93 U/L (45-117); Anion Gap 6 (5-15); BUN 15 mg/dL (7-18); BUN/Creat Ratio 13.5 RATIO (10-20); Calcium,Total 8.7 mg/dL (8.5-10.1); Chloride 111 mmol/L (98-107); Creatinine, Serum 1.11 mg/dL (0.70-1.30); EST Glomerular Filtration Rate 73 mL/min (>60); Est Glom Filt Rate - Afr Amer 88 mL/min (>60); Estimated Creatinine Clearance 71.89 ml/min; Globulin 3.3 g/dL (2.2-4.2); Glucose 120 mg/dL (74-106); Potassium 4.6 mmol/L (3.5-5.1); Protein, Total 6.7 g/dL (6.4-8.2); Sodium Level 141 mmol/L (136-145); Troponin-I HS < 3 pg/mL (3.0-78.0)
[2021-09-20 21:14] LABS: Color, Urine Amber (Yellow); Glucose, Dipstick Normal (Normal); Ketone-Dipstick 5 mg/dl (Negative); Leukocyte Esterase-Dipstick 25 /ul (Negative); Nitrite-Dipstick Negative (Negative); Occult Blood-Urine 250 /ul (Negative); Protein-Dipstick 30 mg/dl (Negative); Urine Bilirubin Dipstick Negative (Negative); Urine Clarity Cloudy (Clear); Urine Urobilinogen Normal (Normal)
[2021-09-20 21:14] LABS: Differential Comment SCANNED
[2021-09-20 21:25] LABS: Red Blood Cells-Urine > 100 SEEN /hpf (0-5); Squamous Epithelial Cells - UA 0-5 SEEN /hpf (0-5); White Blood Cells 0-5 SEEN /hpf (0-5)
[2021-09-20 21:26] LABS: Amorphous Sediment 1+ PHOS; Bacteria RARE /hpf (None Seen)
[2021-09-21] VITALS (9 sets, daily range): BP systolic 105–132; BP diastolic 68–86; PULSE 76–82; RESP 15–20; TEMP 36.7–37.3; O2SAT 92–96; BMI 26.9
[2021-09-21] MEDS: Morphine 4 MG/ML Syringe IV (01:04)
--- NOTE | 2021-09-21 01:08 | PCM.HP.STD ---
HPI - General General Date of Admission: 09/21/21 Date of Service: 09/21/21 Chief Complaint: Shortness of breath, hypoxia HPI Narrative DANY MAGUIRE, is a 56 M who presents to the emergency [facility] for evaluation of hypoxia after a lithotripsy was performed today by Dr. Rojo. Patient has had a history of shortness of breath over the last several months since he had COVID in May 2021, his latest chest x-ray that was done a few months ago did not show any abnormality however. Patient did not complain of any fevers or chills Work-up in the emergency room included a CBC which was unremarkable, chemistry profile was remarkable for a chloride of 111, patient's urinalysis showed over 100 red blood cells, rare bacteria, and 0-5 WBCs. Patient had a chest x-ray performed which showed a hazy increased density in the left lower lobe which could be secondary to pneumonia, edema, or atelectasis. Patient was afebrile in the emergency room, his pulse ox on room air at rest was 95%, on ambulation, his pulse ox dropped to 88% according to the emergency room physician. Patient will be placed in observation status for left lower lobe pneumonia, he will be given aerosol treatments, he will be maintained on IV Zithromax and Rocephin, he will be evaluated tomorrow-I suspect that he may not need oxygen on ambulation tomorrow and could be discharged home on oral antibiotics. [facility] Medical History (Updated 09/20/21 @ 23:[address] Fransisco Sun, DO) Anxiety and depression BPH (benign prostatic hyperplasia) COVID Kidney stone Overactive bladder Rotator cuff arthropathy of left shoulder Sleep apnea Home Medications allopurinol 300 mg PO DAILY 01/27/20 [History Last Taken 09/19/21 11:30] aspirin 81 mg PO DAILY@0800 01/27/20 [History Last Taken 09/19/21 11:30] bupropion HCl 300 mg PO DAILY 01/27/20 [History Last Taken 09/19/21 11:30] [id number] 1 ea PO BID 01/27/20 [History Last Taken 09/19/21 11:30] citalopram 40 mg PO QHS 01/27/20 [History Last Taken 09/19/21 23:50] topiramate 200 mg PO QHS 01/27/20 [History Last Taken 09/19/21 23:30] tamsulosin 0.4 mg PO DAILY 08/20/20 [History Last Taken 09/19/21 11:30] trazodone 100 mg PO QHS 08/20/20 [History Last Taken 09/19/21 23:30] Allergy/AdvReac Type Severity Reaction Status Date / Time anti-inflammatory AdvReac Hives Uncoded 09/20/21 18:32 Surgical History (Updated 09/20/21 @ 20:[address] Fransisco Sun DO) Hx of lithotripsy Social History Smoking Status: Never smoker ROS Constitutional Constitutional: Denies anorexia, change in weight, fever(s), night sweats or weakness Eyes Eyes: Denies blurry vision, change in vision, discharge from eye(s) or eye pain Cardiovascular Cardiovascular: Denies chest pain, claudication, edema or palpitations Respiratory/Chest Respiratory/Chest: Reports shortness of breath with exertion; Denies hemoptysis or shortness of breath at rest Gastrointestinal Gastrointestinal: Denies abdominal pain, constipation, diarrhea, hematemesis, hematochezia, melena, nausea or vomiting Genitourinary Genitourinary: Denies dysuria, hematuria, urinary frequency, urinary hesitancy, urinary incontinence or urinary urgency Musculoskeletal Musculoskeletal: Denies back pain, joint pain, joint stiffness, joint swelling, myalgias or neck pain Neurologic Neurologic: Denies abnormal gait, abnormal speech, dizziness, focal weakness, headache(s), loss of vision, numbness, other visual disturbances, paresthesias, syncope or tingling Psychiatric Psychiatric: Denies anxiety, cognitive impairment, depression, irritability, mood swings or suicidal ideation Endocrine Endocrinology: Denies change in body appearance, cold intolerance, excessive sweating, heat intolerance, polydipsia or polyuria Hematologic/Lymphatic Hematologic/Lymphatic: Denies none, anemia, easy bleeding, easy bruising or lymphadenopathy Allergic/Immunologic Allergic/Immunologic: Denies rhinitis, urticaria, eczemia or asthma Vital Signs Vital Signs Vital Signs: 09/20/21 17:50 09/20/21 19:18 09/20/21 19:20 Temperature 97.3 F L Temperature Source Temporal Pulse Rate 61 77 Respiratory Rate 14 18 Respiratory Effort Short of Breath Respiratory Depth Normal Respiratory Pattern Normal Blood Pressure 104/70 121/75 H Blood Pressure Mean 81 90 Pulse Ox 89 95 Oxygen Delivery Method Room Air Room Air Room Air Oxygen Flow Rate (L/min) 09/20/21 20:21 09/20/21 20:24 09/20/21 21:22 Temperature Temperature Source Pulse Rate 77 82 Respiratory Rate 20 H 20 H Respiratory Effort Normal Short of Breath Respiratory Depth Normal Respiratory Pattern Normal Blood Pressure 119/79 Blood Pressure Mean 92 Pulse Ox 96 96 Oxygen Delivery Method Nasal Cannula Nasal Cannula Nasal Cannula Oxygen Flow Rate (L/min) 2 2 2 09/20/21 23:07 09/21/21 01:00 Temperature 98.1 F Temperature Source Oral Pulse Rate 78 76 Respiratory Rate 16 15 Respiratory Effort Respiratory Depth Respiratory Pattern Blood Pressure 103/78 109/86 H Blood Pressure Mean 86 93 Pulse Ox 98 96 Oxygen Delivery Method Room Air Room Air Oxygen Flow Rate (L/min) Weight Weight: 81.647 kg Body Mass Index (BMI) 27.3 Physical Exam Const alert, oriented x3, no apparent distress, average body habitus, healthy appearing and well nourished General Appearance: cooperative, well kempt and well developed Orientation / Consciousness: awake, oriented to person, oriented to place and oriented to time HEENT normocephalic, head/scalp atraumatic, hearing grossly normal bilaterally and moist oral mucous membranes Eyes PERRL, EOMs intact bilaterally and conjunctivae normal Neck nuchal rigidity, supple, no JVD, thyroid normal and no carotid bruits General: trachea midline Resp normal respiratory effort, no retractions and no use of accessory muscles Auscultation: rales left base; Negative for rhonchi or wheezes Cardio regular rate, regular rhythm, S1 normal heart sound, S2 normal heart sound, no murmurs, no rub and no gallops GI normal to inspection, nondistended, normoactive bowel sounds, soft to palpation, non-tender and non-distended Extremity normal to inspection and no clubbing, cyanosis or edema Skin no rashes or lesions noted General Skin Exam: no breakdown Neuro oriented x3, CN's II-XII intact bilaterally, no focal motor deficits and no sensory deficits noted Sensorium / Orientation: awake and alert Speech: speech normal Psych affect normal Results Lab / Micro Data Result Diagrams: 09/20/21 20:23 09/20/21 20:23 Labs: Laboratory Results - last 24 hr 09/20/21 20:23: WBC 10.7, RBC 4.18 L, Hgb 13.0, Hct 40.2, MCV 96.2 H, MCH 31.1, MCHC 32.3, RDW Std Deviation 46.7 H, RDW Coeff of She 13.2, Plt Count 219, MPV 11.2, Immature Gran % (Auto) 0.400, Neut % (Auto) 94.1 H, Lymph % (Auto) 4.7 L, [place] % (Auto) 0.7, Eos % (Auto) 0.0, Baso % (Auto) 0.1, Absolute Neuts (auto) 10.1 H, Absolute Lymphs (auto) 0.51 L, Nucleated RBC % 0, Differential Comment SCANNED 09/20/21 20:23: D-Dimer Quant (PE/DVT) 0.30 09/20/21 20:23: Sodium 141, Potassium 4.6, Chloride 111 H, Carbon Dioxide 24.0, Anion Gap 6, BUN 15, Creatinine 1.11, Estim Creat Clear Calc 71.89, Est GFR (MDRD) Af Amer 88, Est GFR (MDRD) Non-Af 73, BUN/Creatinine Ratio 13.5, Glucose 120 H, Calcium 8.7, Total Bilirubin 0.40, AST 22, ALT 26, Alkaline Phosphatase 93, Troponin I High Sens < 3 L, Total Protein 6.7, Albumin 3.4, Globulin 3.3, Albumin/Globulin Ratio 1.0 09/20/21 21:00: Urine Color [place], Urine Clarity Cloudy, Urine pH 7.0, Ur Specific [place] 1.010, Urine Protein 30 H, Urine Glucose (UA) Normal, Urine Ketones 5 H, Urine Occult Blood 250 H, Urine Nitrite Negative, Urine Bilirubin Negative, Urine Urobilinogen Normal, Ur Leukocyte Esterase 25 H, Urine RBC > 100 SEEN, Urine WBC 0-5 SEEN, Ur Squamous Epith Cells 0-5 SEEN, Amorphous Sediment 1+ PHOS, Urine Bacteria RARE, Urine Mucus 0 SEEN Micro: Microbiology 09/20/21 20:25 Nasal Secretion SARS-CoV-2 & FLU Antigen (Rapid) - Final Radiology Impression Chest X-Ray 09/20/21 20:52 IMPRESSION: Hazy increased density left lower lung may be due to pneumonia, edema, or atelectasis. Electronically Signed: David Rodriguez MD at 21:15 EDT , Assessment & Plan Assessment/Plan (1) Pneumonia: PLAN: 1. Left lower lobe community-acquired pneumonia-patient will be placed in observation status on MedSurg, he will receive IV Rocephin and Zithromax, he will be reevaluated tomorrow, CBC will be repeated in the morning #2 hypoxia-this is mild and it is only on ambulation, patient will receive aerosol treatments, he will be reevaluated tomorrow for qualifications for oxygen, I suspect again that he may not need oxygen on discharge home. #3 status post right sided lithotripsy today #4 chronic depression-patient is on citalopram and Wellbutrin. #5 BPH-patient is on Flomax Charges/Coding Visit Charges OBSV E&M: 98144 Initial observation care L3
[2021-09-21] MEDS: Albuterol 2.5 MG/3 ML VIAL.NEB. INHALATION ×2 (07:20→13:38)
[2021-09-21 07:39] LABS: Absolute Lymphocyte Count 1.41 X10^3/uL (0.83-4.51); Absolute Neutrophil Count 10.8 X10^3/uL (2.0-7.7); Basophil# 0.02 X10^3/uL; Basophil% 0.2 % (0-1); Hematocrit 37.8 % (40-54); Hemoglobin 12.2 g/dL (13.0-16.5); Lymphocyte # 1.41 X10^3/ul (0.83-4.51); Lymphocyte % 10.8 % (19-41); Mean Corp Hgb Conc 32.3 g/dL (32-36); Mean Corpuscular Volume 96.2 fL (80-94); Mean Platelet Vol. 11.4 fl (6.2-12.0); Monocyte# 0.77 X10^3/uL; Monocyte% 5.9 % (0-10); NRBC Flagged by Analyzer 0 % (0-5); Neutrophil # 10.76 X10^3/uL (2.7-7.7); Neutrophil % 82.7 % (47-70); Platelet Count 192 K/mm3 (150-450); RBC Distribution Width CV 13.2 % (11.6-14.6); RBC Distribution Width SD 47.1 fl (35.1-43.9); Red Blood Count 3.93 M/mm3 (4.6-6.2)
[2021-09-21] MEDS: Aspirin 81 MG TAB.CHEW PO (08:30)
[2021-09-21] MEDS: buPROPion (XL) 300 MG TABLET.XL PO (08:30)
[2021-09-21] MEDS: Tamsulosin HCl 0.4 MG Capsule PO (08:30)
--- NOTE | 2021-09-21 09:37 | PCM.PN.BLA ---
Progress Note 56-year-old male status post outpatient ureteroscopy laser extraction of stone in the right ureter and no stent was placed, postop he was hypoxic so was transferred to the emergency room is admitted appears to have a pneumonia also has a history of COVID that may have caused some lung problems?. As of now he is clinically doing stable and from the standpoint of his kidney stone no he does not have a stent outpatient follow-up with me will be in 3 to 4 weeks for checkup and ultrasound of his kidney. Regarding his hypoxia and pneumonia leave this management per the medical service and discharge per them. Call me with questions
--- NOTE | 2021-09-21 11:55 | CASEMGMT ---
BRI BALDWIN NOTE: Plan is for pt to be discharged home today, as long as he does not need oxygen. BRI BALDWIN to room to discuss discharge planning. Pt sitting up in chair. On RA. His PCP is Dr Galarza and he sees Dr Rojo-urology. He has [place] insurance and has rx coverage. He states he lives w/his sig-other, Emily, in one-story home. He is independent, drives, and uses no DME to ambulate. He used to use a PAP @ [facility], but states he no longer needs it since he had significant weight-loss. He denies having any discharge/home-going needs or concerns. Emily's mom will take him home @ discharge. Rosalee CARSON RN CM
--- NOTE | 2021-09-21 15:07 | PCM.DC.SUM ---
Providers Date of Admission: 09/21/21 Primary Care Physician: Dr. Shelton Galarza MD Reason For Visit: LEFT LOWER LOBE PNEUMONIA, HYPOXIA Diagnosis Discharge Diagnosis (1) Pneumonia: Status: Acute Code(s): J18.9 - Pneumonia, unspecified organism Medications at Discharge Home Medications allopurinol 300 mg PO DAILY 01/27/20 aspirin 81 mg PO DAILY@0800 01/27/20 bupropion HCl 300 mg PO DAILY 01/27/20 citalopram 40 mg PO QHS 01/27/20 topiramate 200 mg PO QHS 01/27/20 tamsulosin 0.4 mg PO DAILY 08/20/20 trazodone 100 mg PO QHS 08/20/20 levofloxacin 750 mg PO DAILY #5 tab 09/21/21 Hospital Course Summary of Care Provided Minutes Spent on Discharge: 35 Hospital Course: Patient is a 56-year-old male with a past medical history as outlined was admitted through the ED on 09/21/2021 for hypoxia. Patient had a lithotripsy done on the day of admission and subsequently complained of hypoxia. He said he had been feeling short of breath since he had COVID in November 2021. He denied any cough, fever or chills, nausea vomiting. Chest x-ray showed a hazy increased density in the left lower lobe which could be secondary to pneumonia, edema or atelectasis. CBC and BMP were otherwise unremarkable. His saturation dropped to 88% on room air. He was admitted and managed for community-acquired pneumonia and he was placed on IV ceftriaxone and azithromycin. Patient shortness of breath resolved and he felt much better. He had walking pulse ox on 09/21/2021 which showed that he did not require any oxygen. He remained stable and was discharged home on 09/21/2021 on p.o. Levaquin 750 mg daily for 5 days. He is follow-up with his primary care doctor within 1 to 2 weeks. Patient was seen and examined prior to discharge. He had no active complaints and had an uneventful night. Review of systems otherwise negative. Labs and vitals reviewed. Home medication reviewed and reconciled. Physical Exam Const alert, oriented x3 and no apparent distress General Appearance: cooperative, comfortable and well kempt Orientation / Consciousness: awake Exam Limitations: no limitations HEENT normocephalic, head/scalp atraumatic, hearing grossly normal bilaterally and moist oral mucous membranes Eyes PERRL, EOMs intact bilaterally and conjunctivae normal Neck no lymphadenopathy Resp normal respiratory effort and no use of accessory muscles Resp Narrative: mildly diminished breath sounds bibasally, no wheezes, few crackles bilaterally. on room air. Cardio regular rate, regular rhythm, S1 normal heart sound, S2 normal heart sound and no murmurs GI normal to inspection, nondistended, normoactive bowel sounds, soft to palpation, non-tender and non-distended Extremity normal to inspection, full ROM and no clubbing, cyanosis or edema Skin no rashes or lesions noted Neuro oriented x3, CN's II-XII intact bilaterally and moves all extremities Sensorium / Orientation: awake and alert Psych affect normal Weight / BMI Weight Weight: 177 lb 7.554 oz Body Mass Index (BMI) 26.9 ABG / Lab / Microbiology Data Result Diagrams: 09/21/21 06:21 09/20/21 20:23 Laboratory: Laboratory Results - last 24 hr 09/20/21 20:23: WBC 10.7, RBC 4.18 L, Hgb 13.0, Hct 40.2, MCV 96.2 H, MCH 31.1, MCHC 32.3, RDW Std Deviation 46.7 H, RDW Coeff of She 13.2, Plt Count 219, MPV 11.2, Immature Gran % (Auto) 0.400, Neut % (Auto) 94.1 H, Lymph % (Auto) 4.7 L, [place] % (Auto) 0.7, Eos % (Auto) 0.0, Baso % (Auto) 0.1, Absolute Neuts (auto) 10.1 H, Absolute Lymphs (auto) 0.51 L, Nucleated RBC % 0, Differential Comment SCANNED 09/20/21 20:23: D-Dimer Quant (PE/DVT) 0.30 09/20/21 20:23: Sodium 141, Potassium 4.6, Chloride 111 H, Carbon Dioxide 24.0, Anion Gap 6, BUN 15, Creatinine 1.11, Estim Creat Clear Calc 71.89, Est GFR (MDRD) Af Amer 88, Est GFR (MDRD) Non-Af 73, BUN/Creatinine Ratio 13.5, Glucose 120 H, Calcium 8.7, Total Bilirubin 0.40, AST 22, ALT 26, Alkaline Phosphatase 93, Troponin I High Sens < 3 L, Total Protein 6.7, Albumin 3.4, Globulin 3.3, Albumin/Globulin Ratio 1.0 09/20/21 21:00: Urine Color [place], Urine Clarity Cloudy, Urine pH 7.0, Ur Specific [place] 1.010, Urine Protein 30 H, Urine Glucose (UA) Normal, Urine Ketones 5 H, Urine Occult Blood 250 H, Urine Nitrite Negative, Urine Bilirubin Negative, Urine Urobilinogen Normal, Ur Leukocyte Esterase 25 H, Urine RBC > 100 SEEN, Urine WBC 0-5 SEEN, Ur Squamous Epith Cells 0-5 SEEN, Amorphous Sediment 1+ PHOS, Urine Bacteria RARE, Urine Mucus 0 SEEN 09/21/21 06:21: WBC 13.0 H, RBC 3.93 L, Hgb 12.2 L, Hct 37.8 L, MCV 96.2 H, MCH 31.0, MCHC 32.3, RDW Std Deviation 47.1 H, RDW Coeff of She 13.2, Plt Count 192, MPV 11.4, Immature Gran % (Auto) 0.400, Neut % (Auto) 82.7 H, Lymph % (Auto) 10.8 L, [place] % (Auto) 5.9, Eos % (Auto) 0.0, Baso % (Auto) 0.2, Absolute Neuts (auto) 10.8 H, Absolute Lymphs (auto) 1.41, Nucleated RBC % 0 Microbiology: Microbiology 09/21/21 02:40 Urine, Clean Catch Legionella Antigen - Final 09/21/21 02:40 Urine, Clean Catch Streptococcus pneumoniae Antigen (M - Final 09/20/21 20:25 Nasal Secretion SARS-CoV-2 & FLU Antigen (Rapid) - Final Radiography Diagnostic Testing: Radiology Impression Chest X-Ray 09/20/21 20:52 IMPRESSION: Hazy increased density left lower lung may be due to pneumonia, edema, or atelectasis. Electronically Signed: David Rodriguez MD at 21:15 EDT , D/C Instructions Discharge Diet: Low fat / Low cholesterol Weight Bearing Status: Weight bearing as tolerated Call your doctor if you observe: Fever of 101 or Higher, Shortness of breath, Dizziness, Swelling in the ankles and Chest pain Meaningful Use Info Meaningful Use Diagnoses (Choose all that apply): None applicable Discharge Plan Admission Admit Date/Time: 09/21/21 01:37 Primary Reason for Your Visit: pneumonia Attending Provider: Alis Larson Primary Care Provider: Shelton Galarza [employer] Providers: Jordan Rico Instructions Patient Instructions: Pneumonia Discharge Orders/Prescriptions Prescriptions: New levofloxacin 750 mg tablet 750 mg PO DAILY Qty: 5 RF: 0 Continued citalopram 40 MG tablet 40 mg PO QHS RF: 0 aspirin 81 MG tablet,chewable 81 mg PO DAILY@0800 RF: 0 allopurinol 300 MG tablet 300 mg PO DAILY RF: 0 topiramate 100 MG tablet 200 mg PO QHS RF: 0 bupropion HCl 300 MG tablet extended release 24 hr 300 mg PO DAILY RF: 0 tamsulosin 0.4 MG capsule 0.4 mg PO DAILY RF: 0 trazodone 100 MG tablet 100 mg PO QHS RF: 0 Referrals / Follow Up: Shelton Galarza Chi, MD [Primary Care Provider] - Disposition Disposition (needs filled in before D/C Order can be placed): Home, Self Care Charges/Coding Visit Charges Inpatient E&M: 94481 Disch Hosp
== END 2021-09-21 16:29 | disposition home or self-care (01) ==
LOC: ED 23:56 → MS3 09-21 01:43
PROVIDERS: Admitting Provider Internal Medicine; Emergency Provider Emergency Medicine; PCP Family Medicine Geriatric Medicine; Visit Provider Student in an Organized Health Care Education/Training Program
DX: J18.9 Pneumonia, unspecified organism (principal); R09.02 Hypoxemia; Z86.16 Personal history of COVID-19; N40.0 Benign prostatic hyperplasia without lower urinary tract symptoms; G47.30 Sleep apnea, unspecified; F41.9 Anxiety disorder, unspecified; F32.A Depression, unspecified; Z79.899 Other long term (current) drug therapy; Z79.82 Long term (current) use of aspirin; N32.81 Overactive bladder
CPT/HCPCS: 36415; 71045; 80053; 81001; 84484; 85025; 85379; 87040; 87428; 87449; 94640; 94762; 96365; 96367; 96375; 99218; 99251; 99285; G0378; G0463; J0696

== ENCOUNTER → 2021-10-02 | Outpatient (CLI) | payer BC, SELFPAY ==
--- NOTE | 2021-10-02 14:16 | RAD_ITS ---
STUDY: X-RAY CHEST REASON FOR EXAM: Male, 56 years old. COUGH TECHNIQUE: PA and lateral views of the chest. COMPARISON: Previous chest radiographs of 09/20/2021 and 07/26/2021. FINDINGS: The previous noted left basilar infiltrates have resolved. There is minimal chronic linear scarring at the left lung base, unchanged as compared to prior study 07/26/2021.. No acute pulmonary infiltrates are identified. There is no demonstrated pleural abnormality. Normal size heart. Normal mediastinum and rhonda. Normal visualized pulmonary arteries. Stable mild elongation of the thoracic aorta. No hilar enlargement or mediastinal widening. No acute osseous abnormality. There is no demonstrated abnormality of the visualized soft tissue structures of the upper abdomen. RAD/Chest PA and Lateral IMPRESSION: Interval resolution of the left basilar infiltrates seen on the prior study of 09/20/2021. No acute cardiopulmonary disease process identified. Electronically Signed: Phill Fragoso MD at 2:27 EDT ,
== END | disposition home or self-care (01) ==
LOC: RAD 14:06
PROVIDERS: PCP Family Medicine Geriatric Medicine; Referring Provider Family Medicine Geriatric Medicine; Visit Provider Family Medicine Geriatric Medicine
DX: R05.9 Cough, unspecified (principal)
CPT/HCPCS: 71046

== ENCOUNTER → 2022-02-26 | Outpatient (CLI) | payer BC, SELFPAY ==
[2022-02-26 17:56] LABS: Absolute Lymphocyte Count 1.71 X10^3/uL (0.83-4.51); Absolute Neutrophil Count 5.4 X10^3/uL (2.0-7.7); Basophil# 0.03 X10^3/uL; Basophil% 0.4 % (0-1); Eosinophil# 0.11 X10^3/uL; Eosinophils% 1.4 % (0-5); Hematocrit 46.8 % (40-54); Hemoglobin 15.2 g/dL (13.0-16.5); Lymphocyte # 1.71 X10^3/ul (0.83-4.51); Lymphocyte % 22.2 % (19-41); Mean Corp Hgb Conc 32.5 g/dL (32-36); Mean Corpuscular Hgb 31.1 pg (27.0-32.0); Mean Corpuscular Volume 95.7 fL (80-94); Mean Platelet Vol. 11.6 fl (6.2-12.0); Monocyte# 0.48 X10^3/uL; Monocyte% 6.2 % (0-10); NRBC Flagged by Analyzer 0 % (0-5); Neutrophil # 5.37 X10^3/uL (2.7-7.7); Neutrophil % 69.5 % (47-70); Platelet Count 268 K/mm3 (150-450); RBC Distribution Width CV 12.6 % (11.6-14.6); RBC Distribution Width SD 44.6 fl (35.1-43.9); Red Blood Count 4.89 M/mm3 (4.6-6.2); White Blood Count 7.7 K/mm3 (4.4-11.0)
[2022-02-26 18:42] LABS: ALB/GLOB Ratio 1.2 RATIO (0.9-2.4); AST(SGOT) 9 U/L (15-37); Alanine Aminotransfer ALT/SGPT 30 U/L (16-61); Albumin, Serum 3.8 g/dL (3.2-5.0); Alkaline Phosphatase 105 U/L (45-117); Anion Gap 7 (5-15); BUN 13 mg/dL (7-18); BUN/Creat Ratio 9.6 RATIO (10-20); Calcium,Total 8.6 mg/dL (8.5-10.1); Chloride 107 mmol/L (98-107); Creatinine, Serum 1.35 mg/dL (0.70-1.30); EST Glomerular Filtration Rate 58 mL/min (>60); Est Glom Filt Rate - Afr Amer 70 mL/min (>60); Globulin 3.2 g/dL (2.2-4.2); Glucose 143 mg/dL (74-106); PSA,Total - Annual Screen 2.83 ng/mL (0.00-4.00); Potassium 3.1 mmol/L (3.5-5.1); Sodium Level 139 mmol/L (136-145); Thyroid Stim Hormone (TSH) 0.67 uIU/mL (0.358-3.74); Uric Acid 4.7 mg/dL (3.5-7.2)
== END | disposition home or self-care (01) ==
LOC: POLAB3 13:10
PROVIDERS: PCP Family Medicine Geriatric Medicine; Visit Provider Family Medicine Geriatric Medicine
DX: F52.8 Other sexual dysfunction not due to a substance or known physiological condition (principal); M10.9 Gout, unspecified; R53.83 Other fatigue; Z12.5 Encounter for screening for malignant neoplasm of prostate
CPT/HCPCS: 36415; 80053; 84153; 84403; 84443; 84550; 85025; G0103

== ENCOUNTER 2022-08-13 12:42 | Day surgery (SDC) | payer BC, SELFPAY ==
[2022-08-13] MEDS: Lactated Ringers 1,000 ML 15 ML IV (13:13)
[2022-08-13 13:15] VITALS: BP 116/84; PULSE 88; RESP 18; TEMP 37.1; O2SAT 97; BMI 24.3
--- NOTE | 2022-08-13 14:46 | PCM.HP.STD ---
HPI - General General Date of Service: 08/13/22 Chief Complaint: Left ureteral calculi proximal HPI Narrative DANY MAGUIRE, is a 56 M who presents to outside emergency room with severe pain from a proximal stone in the left ureter causing obstruction and pain plan to proceed with intervention with left ureteroscopy laser lithotripsy of stone and stent placement. [facility] Medical History (Updated 08/13/22 @ 14:[address] Juan Rojo MD) Anxiety and depression Asthma BPH (benign prostatic hyperplasia) COVID Gastric reflux History of stress test Kidney stone Non-smoker Overactive bladder Pneumonia Restless legs Rotator cuff arthropathy of left shoulder Shortness of breath on exertion Sleep apnea Wears glasses Home Medications allopurinol 300 mg tablet 300 mg PO DAILY gout 01/27/20 [History Last Taken 09/19/21 11:30] aspirin 81 mg chewable tablet 81 mg PO DAILY@0800 heart health 01/27/20 [History Last Taken 08/07/22] bupropion HCl 300 mg 24 hr tablet, extended release 300 mg PO DAILY mood 01/27/20 [History Last Taken 08/13/22] citalopram 40 mg tablet 40 mg PO QHS mood 01/27/20 [History Last Taken 09/19/21 23:50] topiramate 100 mg tablet 200 mg PO QHS mood 01/27/20 [History Last Taken 09/19/21 23:30] tamsulosin 0.4 mg capsule 0.4 mg PO QHS BPH 08/20/20 [History Last Taken 09/19/21 11:30] trazodone 100 mg tablet 100 mg PO QHS sleep 08/20/20 [History Last Taken 09/19/21 23:30] albuterol sulfate 2.5 mg/3 mL (0.083 %) solution for nebulization 2.5 mg inhalation PRN PRN SOB 08/12/22 [History Last Taken Unknown] albuterol sulfate 90 mcg/actuation aerosol inhaler 1 puff inhalation Q6H PRN SOB 08/12/22 [History Last Taken Unknown] budesonide 90 mcg/actuation breath activated powder inhaler (Pulmicort Flexhaler) 1 inh inhalation BID 08/12/22 [History Last Taken Unknown] montelukast 10 mg tablet (Singulair) 10 mg PO QHS 08/12/22 [History Last Taken Unknown] omeprazole 20 mg capsule,delayed release 20 mg PO DAILY 08/12/22 [History Last Taken 08/13/22] oxybutynin chloride 5 mg tablet 5 mg PO BID 08/12/22 [History Last Taken Unknown] ciprofloxacin HCl 500 mg tablet (Cipro) 500 mg PO BID #10 tabs 08/13/22 [Rx Last Taken Unknown] oxycodone-acetaminophen 5 mg-325 mg tablet (Endocet) 1 tab PO Q6H PRN pain 7 days #14 tabs 08/13/22 [Rx Last Taken Unknown] Allergy/AdvReac Type Severity Reaction Status Date / Time naproxen AdvReac Hives Verified 08/13/22 13:07 anti-inflammatory AdvReac Hives Uncoded 08/12/22 13:34 Surgical History (Updated 08/12/22 @ 13:48 by Tiara Osuna) History of cystoscopy Hx of lithotripsy Social History Smoking Status: Never smoker Vital Signs Vital Signs Vital Signs: 08/13/22 13:15 08/13/22 13:15 Temperature 98.7 F Temperature Source Temporal Pulse Rate 88 Respiratory Rate 18 Respiratory Pattern Normal Blood Pressure 116/84 H Blood Pressure Mean 94 Pulse Ox 97 Oxygen Delivery Method Room Air Weight Weight: 72.575 kg Body Mass Index (BMI) 24.3 Assessment & Plan Assessment/Plan (1) Left ureteral calculus: PLAN: He has 1 stone in the ureter which can to treat with a laser he also has another stone in the left kidney I told the patient I will try to see if and get that stone as well.
--- NOTE | 2022-08-13 14:47 | DCINST_ITS ---
Discharge Instructions Diet Discharge Diet: No restrictions, Light diet - advance as tolerated and Soft diet Activity Discharge Activity: Return to Normal Activity Follow Up Care Please Follow Up With: Juan Rojo MD When: next week call for appt. Test Results: Test results from this visit will be discussed in further detail at your follow- up appointment, if applicable. Discharge Plan Admission Primary Reason for Your Visit: left ureteral calculi Attending Provider: Juan Rojo Primary Care Provider: JEFFERSON CAM Discharge Orders/Prescriptions Prescriptions: New oxycodone-acetaminophen [Endocet] 5-325 mg tablet 1 tab PO Q6H PRN (Reason: pain) 7 Days Qty: 14 0RF ciprofloxacin HCl [Cipro] 500 mg tablet 500 mg PO BID Qty: 10 0RF No Action citalopram 40 MG tablet 40 mg PO QHS aspirin 81 MG tablet,chewable 81 mg PO DAILY@0800 allopurinol 300 MG tablet 300 mg PO DAILY topiramate 100 MG tablet 200 mg PO QHS bupropion HCl 300 MG tablet extended release 24 hr 300 mg PO DAILY tamsulosin 0.4 MG capsule 0.4 mg PO QHS trazodone 100 MG tablet 100 mg PO QHS albuterol sulfate 2.5 mg /3 mL (0.083 %) Solution For Nebulization 2.5 mg INHALATION PRN PRN (Reason: SOB) omeprazole [Prilosec] 20 mg Capsule,Delayed Release(Dr/Ec) 20 mg PO DAILY montelukast [Singulair] 10 mg Tablet 10 mg PO QHS albuterol sulfate 90 mcg/actuation Hfa Aerosol Inhaler 1 puff INHALATION Q6H PRN (Reason: SOB) oxybutynin chloride [Ditropan] 5 mg Tablet 5 mg PO BID Pulmicort Flexhaler 90 mcg/actuation Aerosol Powdr Breath Activated 1 inh INHALATION BID Referrals / Follow Up: Juan Rojo MD [Med Staff - Active Staff] - JEFFERSON CAM CRNP [Primary Care Provider] - Disposition Disposition (needs filled in before D/C Order can be placed): Home, Self Care
[2022-08-13] MEDS: Cefazolin 2 GM in 0.9% Normal Saline 100 ML IV (14:59)
--- NOTE | 2022-08-13 15:36 | OP.PCM_ITS ---
Report of Operation Date of Procedure: 08/13/22 Pre-Operative Diagnosis: Obstructing distal left ureteral calculi Post-Operative Diagnosis: The same Surgery/Procedure Performed:: Cystoscopy, balloon dilation of the left ureter, left ureteroscopy laser lithotripsy of stone and left stent placement. Description of Surgical Findings:: This is a patient who presents to the hospital for treatment for an obstructing distal ureter calculi. I discussed with the patient how the surgery would be performed and we reviewed the risks and benefits of the surgery. The risk and benefits include the risk of failure to remove the stone completely and that the patient may need multiple procedures. We discussed the risk of an infection, the risk of bleeding. We discussed the very rare risk of serious complicated injury to the ureter. The patient understands that if the stone is not able to be removed safely that we may abort the procedure and place a stent. After full discussion and all questions address with the patient the consent form was signed the side was marked appropriately and the patient was taken back to the operating room for the procedure. The patient was taken back to the operating room. After induction of anesthesia by the anesthesiology team the patient was placed in dorsolithotomy position. The genitals were prepped and draped in usual sterile fashion. I went into the bladder with a 21 [place] rigid cystourethroscope through the urethra. Upon entering the bladder I inspected the trigone the left and right ureteral orifice and the bladder itself. I then cannulated the Left ureteral orifice and advanced a 0.038 Glidewire up into the kidney. Then over the Glidewire I advanced a 5 Fr Ureteral catheter and performed a retrograde pyelogram with about 10cc of contrast, to delineate the anatomy and identify the stone location. Then a ureteral balloon dilator was advanced over the wire and the distal ureter was balloon dilated with a 12 Fr x 5cm balloon dilator. After 3 minutes of dilating the ureter the balloon was backloaded off the 0.038 glidewire then the safety wire was left in place. I then placed a second 0.038 Guidewire as a working wire and over the working 0.038 guidewire I went in with the jordan rigide 7.5fr ureteroscope. I was able to go inside with the 7.5Fr jordan rigid utereroscope and I pulled out the working guidewire and then through the 7.5 fr simirigid ureteroscope I engage the stone in the distal ureter with laser lithotripsy using a 270miron laser fiber with energy setting of 6 Hertz and 0.6 J until the stone was lasered into tiny little pieces that should pass on their own. I then backed out of the ureter left the wire in place and then over the 0.038 guidewire I placed a double coiled pigtail ureteral stent. The ureteral stent was advanced over the 0.038 guidewire under direct fluoroscopic guidance and direct cystoscopic visual guidance, once the stent was in good position I pulled the wire and the stent coiled in the kidney and bladder in good position. I then drained the patient's bladder and the cystoscope was removed and the patient was taken back to the recovery room in good position. The patient was given discharge instructions to call the office for instructions on when to come to the office to have the stent removed. Surgeon: Juan Rojo Type of Anesthesia: General Drains: stent left Estimated Blood Loss (mL): 0 Admit VTE Documentation VTE Present on Admission: No VTE Mechan Device Prophylaxis: SCD's VTE Pharm Prophylaxis ordered?: No
[2022-08-13 15:57] VITALS: BP 116/84; BP 117/58; PULSE 97; RESP 18; TEMP 36.6; O2SAT 95
[2022-08-13 16:00] VITALS: BP 106/70; BP 116/84; PULSE 95; RESP 18; O2SAT 93
[2022-08-13 16:15] VITALS: BP 116/80; BP 116/84; PULSE 93; RESP 18; TEMP 36.6; O2SAT 98
[2022-08-13] MEDS: oxyCODONE 5 MG Tablet PO (16:36)
[2022-08-13 16:53] VITALS: BP 116/84; BP 118/83; PULSE 95; RESP 16; TEMP 36.5; O2SAT 97
== END 2022-08-13 17:26 | disposition home or self-care (01) ==
LOC: SDC 12:44 → AC 12:46
PROVIDERS: PCP Nurse Practitioner Adult Health; Referring Provider Urology; Visit Provider Urology
PROC: 0TJ98ZZ Inspection of Ureter, Via Natural or Artificial Opening Endoscopic (ICD-10-PCS; CPT 52352; principal; 2022-08-13 14:55)
DX: N20.1 Calculus of ureter (principal); G47.30 Sleep apnea, unspecified; F41.9 Anxiety disorder, unspecified; F32.9 Major depressive disorder, single episode, unspecified; J45.909 Unspecified asthma, uncomplicated; K21.9 Gastro-esophageal reflux disease without esophagitis; N40.0 Benign prostatic hyperplasia without lower urinary tract symptoms; N32.81 Overactive bladder; Z86.16 Personal history of COVID-19; Z79.82 Long term (current) use of aspirin; Z79.899 Other long term (current) drug therapy
CPT/HCPCS: 52356; 00873; 76000; J7120; C1726; C1769; C2617; J2405

== ENCOUNTER → 2023-06-08 | Outpatient (CLI) | payer BC, SELFPAY ==
--- NOTE | 2023-06-08 14:40 | RAD_ITS ---
INDICATION: GENERALIZED ABD PAIN/ HX OF URINARY CALCULI EXAMINATION/TECHNIQUE: X-RAY - XR Abdomen 1 View COMPARISON: No relevant prior comparison study available FINDINGS: BOWEL GAS PATTERN: Non-obstructive. Nonspecific gaseous bowel loops and colon. Moderate fecal retention. FREE AIR: Not assessed on a single supine view. ORGANOMEGALY: Not seen. CALCIFICATIONS: No abnormal calcifications observed. LOWER CHEST: No acute pathology. BONES AND SOFT TISSUES: No acute pathology. RAD/Abdomen Single View IMPRESSION: Nonspecific gaseous bowel loops and colon. Fecal retention. Electronically Signed: Ryder Cameron MD at 10:40 EST ,
--- OUTSIDE RECORDS SUMMARY | 2023-06-08 14:50 | XMS RPT_ITS | CCD ---
Author Name Unknown Address [address] [facility] [address] [facility] [address] [place] [address] Organization [facility] Care Team Providers Care Casting Agent Name Role Phone DIONY ROUSE Attending Unavailable DIONY ROUSE Referring Unavailable BUIS, MIRI S Primary Care Unavailable AMALIA MONTIEL (STACIA) Attending Unavailable IMCA Referring Unavailable BUIS, MIRI S Primary Care Unavailable BUIS, MIRI S Attending Unavailable IMCA Referring Unavailable BUIS, MIRI S Primary Care Unavailable BUIS, MIRI S Referring Unavailable BUIS, MIRI S Primary Care Unavailable RYLEE PARK Attending Unavailable IMCA Referring Unavailable BUIS, MIRI S Primary Care Unavailable XAVIER EKZACKTE Referring Unavailable BUIS, MIRI S Primary Care Unavailable BUIS, MIRI S Referring Unavailable BUIS, MIRI S Primary Care Unavailable AMALIA MONTIEL (STACIA) Attending Unavailable IMCA Referring Unavailable BUIS, MIRI S Primary Care Unavailable RENNY DURAN Attending Unavailable IMCA Referring Unavailable BUIS, MIRI S Primary Care Unavailable BUIS, MIRI S Attending Unavailable BUIS, MIRI S Referring Unavailable BUIS, MIRI S Primary Care Unavailable DIONY ROUSE Attending Unavailable DIONY ROUSE Referring Unavailable BUIS, MIRI S Primary Care Unavailable DIONY ROUSE Attending Unavailable IMCA Referring Unavailable BUIS, MIRI S Primary Care Unavailable AMALIA MONTIEL (STACIA) Attending Unavailable IMCA Referring Unavailable BUIS, MIRI S Primary Care Unavailable AMALIA MONTIEL (TSACIA) Attending Unavailable IMCA Referring Unavailable BUIS, MIRI S Primary Care Unavailable BUIS, MIRI S Primary Care Unavailable UNKNOWN, PROVIDER Attending Unavailable BUIS, MIRI S Attending Unavailable IMCA Referring Unavailable BUIS, MIRI S Primary Care Unavailable BUIS, MIRI S Referring Unavailable BUIS, MIRI S Primary Care Unavailable AMALIA MONTIEL (STACIA) Attending Unavailable BUIS, MIRI S Referring Unavailable BUIS, MIRI S Primary Care Unavailable BUIS, MIRI S Attending Unavailable BUIS, MIRI S Referring Unavailable BUIS, MIRI S Primary Care Unavailable BUIS, MIRI S Attending Unavailable BUIS, MIRI S Referring Unavailable BUIS, MIRI S Primary Care Unavailable BUIS, MIRI S Referring Unavailable BUIS, MIRI S Primary Care Unavailable BUIS, MIRI S Attending Unavailable IMCA Referring Unavailable BUIS, MIRI S Primary Care Unavailable AMALIA MONTIEL (STACIA) Attending Unavailable BUIS, MIRI S Referring Unavailable BUIS, MIRI S Primary Care Unavailable RENNY DURAN Attending Unavailable IMCA Referring Unavailable BUIS, MIRI S Primary Care Unavailable RYLEE PARK Attending Unavailable IMCA Referring Unavailable BUIS, MIRI S Primary Care Unavailable DEIDRE PETERSON Admitting Unavailable DEIDRE PETERSON Attending Unavailable DEIDRE PETERSON Primary Care Unavailable LANDY XIAO, DR CORREA Primary Care Physician [employer], JEFFERSON Primary Care Physician [phone] SHAMEKA ANDERSON MD Attending Unavailable LANDY XIAO, DR CORREA Primary Care Unavailable SHAMEKA ANDERSON MD Attending Unavailable LANDY XIAO, DR CORREA Primary Care Unavailable GIDEON ASHTON, DR SHAH Attending Unavailable [employer], JEFFERSON Primary Care Unavailabl e [employer], JEFFERSON Attending Unavailnelly BILL MD, DR CORREA Primary Care Unavailable [place] [employer], JEFFERSON Attending Unavailnelly BILL MD, DR CORREA Primary Care Unavailable [place] [place] [employer], JEFFERSON Attending Unavailabl e [employer], JEFFERSON Primary Care Unavailnelly AGUILAR DO, DR ÁLVARO Estrada Attending Unavailable [employer], JEFFERSON Primary Care Unavailnelly STAFFORD MD, DR REYNALDO Estrada Attending Unavailable LANDY XIAO, DR CORREA Primary Care Unavailable Allergies Allergy Classification Reported Allergen(s) Allergy Type Date of Onset Reaction(s) Facility (5 sources) Naproxen; Translations: [naproxen] Drug Allergy [facility] Medications Current Medications Medication Drug Class(es) Dates Sig (Normalized) Sig (Original) acetaminophen 325 mg / oxyCODONE hydrochloride 5 mg oral tablet (1 source) Opioid Agonist Start: 08-05-2022 End: 08-07-2022 take 1 tablet by mouth every six hours as needed for pain Percocet 5 mg-325 mg oral tablet Dose = 1 tab(s), Oral, q6h, PRN for pain, X 2 day(s), # 8 tab(s), 0 Refill(s), Pharmacy: [facility]/pharmacy #[id number], Kidney stone, 172.7, cm, 08/05/22 7:19:00 EDT, Height, 79.5 Start Date: 08/05/22 Stop Date: 08/07/22 Status: Ordered 200 actuat albuterol 0.09 mg/actuat dry powder inhaler (5 sources) beta2-Adrenergic Agonist Start: 05-28-2022 take 1 puff(s) by inhalation every four hours as needed albuterol 90 mcg/inh inhalation powder 1 puff(s), Inhalation, q4h, PRN as needed, generic please, # 1 EA, 3 Refill(s), Pharmacy: [facility]/pharmacy #[id number], Shortness of breath Cough, 172, cm, 05/27/22 10:00:00 EST, Height, kg, 05/27/22 10:00:00 EST, Dosing Weight Start Date: 05/28/22 Status: Ordered allopurinol 300 mg oral tablet (5 sources) Xanthine Oxidase Inhibitor Start: 05-27-2022 allopurinol 300 mg oral tablet 0 Refill(s) Start Date: 05/27/22 Status: Ordered benzonatate 100 mg oral capsule (4 sources) Non-narcotic Antitussive Start: 05-28-2022 benzonatate 100 mg oral capsule Dose : 100 mg = 1 cap(s), Oral, BID, 0 Refill(s) Start Date: 05/28/22 Status: Ordered 60 actuat budesonide 0.09 mg/actuat dry powder inhaler (3 sources) Corticosteroid Start: 06-27-2022 End: 06-22-2023 take 1 dose by inhalation twice daily Pulmicort Flexhaler 90 mcg/inh inhalation powder Dose = 1 puff(s), Inhalation, BID, # 1 EA, 11 Refill(s), Pharmacy: [facility]/pharmacy #[id number], 173, cm, 06/27/22 13:35:00 EST, Height Start Date: 06/27/22 Stop Date: 06/22/23 Status: Ordered 24 hr buPROPion hydrochloride 300 mg extended release oral tablet (5 sources) Aminoketone Start: 05-27-2022 buPROPion 300 mg/24 hours (XL) oral tablet, extended release 0 Refill(s) Start Date: 05/27/22 Status: Ordered citalopram 40 mg oral tablet (5 sources) Serotonin Reuptake Inhibitor Start: 05-27-2022 citalopram 40 mg oral tablet 0 Refill(s) Start Date: 05/27/22 Status: Ordered diclofenac sodium 0.01 mg/mg topical gel (1 source) Nonsteroidal Anti-inflammatory Drug Start: 09-16-2022 Voltaren 1% topical gel Apply 1 jose, Topical, QID, # 100 gram(s), 0 Refill(s), Pharmacy: [facility]/pharmacy #[id number], Gel, 172, cm, 09/16/22 13:26:00 EDT, Height, 75.9 Start Date: 09/16/22 Status: Ordered lidocaine 0.05 mg/mg medicated patch (1 source) Antiarrhythmic, Amide Local Anesthetic Start: 09-11-2022 End: 09-18-2022 Lidoderm 5% topical patch Apply 1 patch(es), Topical, Daily, X 7 day(s), # 7 patch(es), 0 Refill(s), 75 Start Date: 09/11/22 Stop Date: 09/18/22 Status: Ordered montelukast 10 mg oral tablet (5 sources) Leukotriene Receptor Antagonist Start: 05-27-2022 Singulair 10 mg oral tablet Dose : 10 mg = 1 tab(s), Oral, qDay, # 30 tab(s), 11 Refill(s), Pharmacy: [facility]/pharmacy #[id number], 172, cm, 05/27/22 10:00:00 EST, Height Start Date: 05/27/22 Status: Ordered omeprazole 20 mg delayed release oral capsule (5 sources) Proton Pump Inhibitor Start: 09-16-2022 omeprazole 20 mg oral delayed release capsule Dose : 20 mg = 1 cap(s), Oral, qDay, # 30 cap(s), 5 Refill(s), Pharmacy: [facility]/pharmacy #[id number], GERD with apnea, 172, cm, 09/16/22 13:26:00 EDT, Height, kg, 09/16/22 13:26:00 EDT, Dosing Weight Start Date: 09/16/22 Status: Ordered Completed/Discontinued Medications Medication Drug Class(es) Dates Sig (Normalized) Sig (Original) baclofen 20 mg oral tablet (2 sources) gamma-Aminobutyric Acid-ergic Agonist Start: 09-11-2022 End: 09-16-2022 baclofen 20 mg oral tablet Dose : 20 mg = 1 tab(s), Oral, TID, # 15 tab(s), 0 Refill(s) Start Date: 09/11/22 Stop Date: 09/16/22 Status: Ordered Problems Active Problems Problem Classification Problem Date Documented Da te Episodic/Chronic Abdominal pain (1 source) Abdominal pain; Translations: [Unspecified abdominal pain] Onset: 05-28-2022 Episodic Adjustment disorders (5 sources) Grief finding 05-27-2022 Chronic Anxiety disorders (5 sources) Anxiety 05-27-2022 Chronic Asthma (5 sources) Asthma 05-27-2022 Chronic Calculus of urinary tract (7 sources) History of calculus of kidney; Translations: [Personal history of urinary calculi] Onset: 05-28-2022 Episodic Gastritis and duodenitis (5 sources) Gastritis 05-27-2022 Episodic Gout and other crystal arthropathies (5 sources) Gout 05-27-2022 Chronic Hyperplasia of prostate (5 sources) Benign prostatic hyperplasia 05-27-2022 Chronic Miscellaneous mental health disorders (4 sources) Premature ejaculation; Translations: [Psychophysiologic insomnia] Onset: 08-19-2017 Chronic Mood disorders (5 sources) Recurrent major depression 05-27-2022 Chronic Other lower respiratory disease (5 sources) Cough 05-27-2022 Episodic Other lower respiratory disease (6 sources) Dyspnea; Translations: [Shortness of breath] 05-27-2022 Episodic Other lower respiratory disease (4 sources) Restrictive lung disease 06-27-2022 Episodic Residual codes; unclassified (5 sources) H/O: Disorder 05-27-2022 Episodic Unclassified (5 sources) History of SARS-CoV-2 05-27-2022 Unclassified (5 sources) Patient encounter status 05-27-2022 Past or Other Problems Problem Classification Problem Date Documented Da te Episodic/Chronic Unclassified (1 source) Post-acute COVID-19; Translations: [Post COVID-19 condition, unspecified] Results Test Name Value Interpretation Reference Range Facil ity Vital Signs Date Time Vital Sign Value Performing Clinician Joe ramirez 09-11-2022 00:46-0400 Body height 172.[address] ÁLVARO AGUILAR DO [facility] 09-11-2022 00:46-0400 Body temperature 98.24 [degF] DR ÁLVARO AGUILAR DO [facility] 09-11-2022 00:46-0400 Body weight [address] ÁLVARO AGUILAR DO [facility] 09-11-2022 00:46-0400 Diastolic Blood Pressure Non-Invasive [address] ÁLVARO AGUILAR DO [facility] 09-11-2022 00:46-0400 Heart rate 87 /min DR ÁLVARO AGUILAR DO [facility] 09-11-2022 00:46-0400 Respiratory rate 20 /min DR ÁLVARO AGUILAR DO [facility] 09-11-2022 00:46-0400 Systolic Blood Pressure Non-Invasive [address] ÁLVARO AGUILAR DO [facility] 08-05-2022 08:41-0400 Diastolic Blood Pressure Non-Invasive 84 1 SHAMEKA ANDERSON MD [facility] 08-05-2022 08:41-0400 Heart rate 66 /min SHAMEKA ANDERSON MD [facility] 08-05-2022 08:41-0400 Respiratory rate 14 /min SHAMEKA ANDERSON MD [facility] 08-05-2022 08:41-0400 Systolic Blood Pressure Non-Invasive 124 1 SHAMEKA ANDERSON MD [facility] 08-05-2022 08:10-0400 Diastolic Blood Pressure Non-Invasive 81 1 SHAMEKA ANDERSON MD [facility] 08-05-2022 08:10-0400 Heart rate 78 /min SHAMEKA ANDERSON MD [facility] 08-05-2022 08:10-0400 Reason For Taking VItal Signs SHAMEKA ANDERSON MD [facility] 08-05-2022 08:10-0400 Respiratory rate 16 /min SHAMEKA ANDERSON MD [facility] 08-05-2022 08:10-0400 Systolic Blood Pressure Non-Invasive 133 1 SHAMEKA ANDERSON MD [facility] 08-05-2022 07:19-0400 Body height 172.7 cm SHAMEKA ANDERSON MD [facility] 08-05-2022 07:19-0400 Body temperature 97.88 [degF] SHAMEKA ANDERSON MD [facility] 08-05-2022 07:19-0400 Body weight 79.5 kg SHAMEKA ANDERSON MD [facility] 08-05-2022 07:19-0400 Diastolic Blood Pressure Non-Invasive 93 1 SHAMEKA ANDERSON MD [facility] 08-05-2022 07:19-0400 Heart rate 75 /min SHAMEKA ANDERSON MD [facility] 08-05-2022 07:19-0400 Respiratory rate 16 /min SHAMEKA ANDERSON MD [facility] 08-05-2022 07:19-0400 Systolic Blood Pressure Non-Invasive 136 1 SHAMEKA ANDERSON MD [facility] 05-29-2022 00:57-0500 Body temperature 98.24 [degF] DR REYNALDO STAFFORD MD [facility] 05-29-2022 00:57-0500 Diastolic Blood Pressure Non-Invasive [address] REYNALDO STAFFORD MD [facility] 05-29-2022 00:57-0500 Heart rate 77 /min DR REYNALDO STAFFORD MD [facility] 05-29-2022 00:57-0500 Respiratory rate 20 /min DR REYNALDO STAFFORD MD [facility] 05-29-2022 00:57-0500 Systolic Blood Pressure Non-Invasive [address] REYNALDO STAFFORD MD [facility] 05-28-2022 22:45-0500 Reason For Taking VItal Signs DR REYNALDO STAFFORD MD [facility] 05-28-2022 21:28-0500 Blood Pressure Cuff Size DR REYNALDO STAFFORD MD [facility] 05-28-2022 21:28-[address] REYNALDO STAFFORD MD [facility] 05-28-2022 21:28-[address] REYNALDO STAFFORD MD [facility] 05-28-2022 21:28-0500 Body height 172.[address] REYNALDO STAFFORD MD [facility] 05-28-2022 21:28-0500 Body temperature 98.24 [degF] DR REYNALOD STAFFORD MD [facility] 05-28-2022 21:28-0500 Body weight 84.[address] REYNALDO STAFFORD MD [facility] 05-28-2022 21:28-0500 Diastolic Blood Pressure Non-Invasive [address] REYNALDO STAFFORD MD [facility] 05-28-2022 21:28-0500 Heart rate 81 /min DR REYNALDO STAFFORD MD [facility] 05-28-2022 21:28-0500 Respiratory rate 20 /min DR REYNALDO STAFFORD MD [facility] 05-28-2022 21:28-0500 Systolic Blood Pressure Non-Invasive [address] REYNALDO STAFFORD MD [facility] Encounters Encounter Date Encounter Type Care Provider Facility Start: 10-17-2022 End: 12-30-[address] PABLO MENESES DO Facility:[facility] Start: 10-17-2022 End: 12-30-[address] PABLO MENESES DO [facility] Start: 10-10-2022 End: 10-11-2022 ambulatory JEFFERSON [employer] Facility:[facility] Start: 09-11-2022 End: 09-11-2022 Emergency department patient visit DR ÁLVARO AGUILAR DO Facility:[facility] Start: 09-11-2022 End: 09-11-2022 Emergency department patient visit DR ÁLVARO AGUILAR DO [facility] Start: 08-05-2022 End: 08-05-2022 Emergency department patient visit SHAMEKA ANDERSON MD Facility:[facility] Start: 08-05-2022 End: 08-05-2022 Emergency department patient visit SHAMEKA ANDERSON MD [facility] Start: 07-21-2022 End: 07-22-2022 ambulatory JEFFERSON [employer] Facility:[facility] Start: 07-21-2022 End: 07-21-2022 Patient encounter procedure JEFFERSON [employer] [facility] Start: 06-17-2022 End: 06-18-2022 ambulatory JEFFERSON [employer] Facility:[facility] Start: 05-28-2022 End: 05-29-2022 Emergency department patient visit DR REYNALDO STAFFORD MD Facility:[facility] Start: 05-28-2022 End: 05-29-2022 Emergency department patient visit DR REYNALDO STAFFORD MD [facility] Start: 05-20-2022 End: 05-20-2022 Emergency department patient visit SHAMEKA ANDERSON MD Facility:[facility] Start: 11-02-2018 End: 11-03-2018 Patient encounter procedure [facility] Start: 08-11-2018 End: 08-15-2018 Patient encounter procedure RYLEE PARK Facility:[facility] Start: 06-17-2018 End: 06-18-2018 Patient encounter procedure RENNY DURAN Facility:[facility] Start: 02-25-2018 End: 02-25-2018 Patient encounter procedure AMALIA (SW) KURZWEIL Facility:[facility] Start: 01-07-2018 Patient encounter procedure AMALIA (SW) KURZWEIL Facility:[facility] Start: 01-01-2018 End: 01-02-2018 Patient encounter procedure MIRI S BUIS Facility:[facility] Start: 12-23-2017 Patient encounter procedure MIRI S BUIS Facility:[facility] Start: 12-22-2017 End: 12-22-2017 Patient encounter procedure DIONY ROUSE Facility:[facility] Start: 12-21-2017 End: 12-22-2017 Patient encounter procedure MIRI S BUIS Facility:[facility] Start: 12-07-2017 End: 12-07-2017 Patient encounter procedure MIRI S BUIS Facility:[facility] Start: 12-04-2017 Patient encounter procedure MIRI S BUIS Facility:[facility] Start: 11-19-2017 End: 11-19-2017 Patient encounter procedure AMALIA (SW) KURZWEIL Facility:[facility] Start: 11-18-2017 End: 11-19-2017 Patient encounter procedure MIRI S BUIS Facility:[facility] Start: 11-16-2017 End: 11-16-2017 Patient encounter procedure MIRI S BUIS Facility:[facility] Start: 11-12-2017 End: 11-12-2017 Emergency department patient visit MIRI S BUIS Facility:[facility] Start: 10-15-2017 End: 10-15-2017 Patient encounter procedure AMALIA (SW) ASHLYZWEIL Facility:[facility] Start: 10-08-2017 End: 10-08-2017 Patient encounter procedure DIONY ROUSE Facility:[facility] Start: 09-30-2017 Patient encounter procedure DIONY ROUSE Facility:[facility] Start: 09-25-2017 Patient encounter procedure AMALIA (SW) KURZWEIL Facility:[facility] Start: 09-17-2017 End: 09-17-2017 Patient encounter procedure RENNY DURAN Facility:[facility] Start: 09-01-2017 End: 09-01-2017 Patient encounter procedure AMALIA (SW) ASHLYZWEIL Facility:[facility] Start: 08-19-2017 End: 08-20-2017 Patient encounter procedure RYLEE PARK Facility:[facility] Start: 08-19-2017 End: 08-19-2017 Patient encounter procedure EKZACKTE XAVIER Facility:[facility] Start: 08-18-2017 End: 08-19-2017 Patient encounter procedure MIRI S BUIS Facility:[facility] Start: 08-17-2017 End: 08-17-2017 Patient encounter procedure MIRI S BUIS Facility:[facility] Procedures Date Procedure Procedure Detail Performing Clinician Start: 08-20-2017 PSA screening VORA [employer]UNCTION СЕРГЕЙ Payers Date Payer Category Payer Unknown [id number] 2022 Self-pay 1965 Unknown [id number] 2.16.8 [id number] 1965 Unknown [id number] .16.8 40.1.055097.3.579.2.278 1965 Unknown [id number] 2.16.8 40.1.559436.3.579.2.278 1965 Unknown [id number] 2.16.8 40.1.973217.3.579.2.278 1965 Unknown [id number] 2.16.8 40.1.378785.3.579.2.278 1965 Unknown [id number] ..[id number] 40.1.074606.3.579.2.278 1965 Unknown [id number] 2..8 40.1.319470.3.579.2.278 1965 Unknown [id number] 2..8 40.1.838595.3.579.2.278 1965 Unknown [id number] 2..8 40.1.269413.3.579.2.278 1965 Unknown [id number] ..[id number] 40.1.390381.3.579.2.278 1965 Unknown [id number] 2.16.8 40.1.103808.3.579.2.278 1965 Unknown [id number] 2.16.8 40.1.072155.3.579.2.278 1965 Unknown [id number] 2.16.8 40.1.503341.3.579.2.278 1965 Unknown [id number] 2.16.8 40.1.266161.3.579.2.278 1965 Unknown [id number] 2.16.8 40.1.133933.3.579.2.278 1965 Unknown [id number] 2.16.8 40.1.717688.3.579.2.278 1965 Unknown [id number] 2.16.8 40.1.216705.3.579.2.278 1965 Unknown [id number] 2.16.8 40.1.831212.3.579.2.278 1965 Unknown [id number] 2.16.8 40.1.808829.3.579.2.278 1965 Unknown [id number] 2.16.8 40.1.898199.3.579.2.278 1965 Unknown [id number] 2.16.8 40.1.560916.3.579.2.278 1965 Unknown [id number] 2.16.8 40.1.834819.3.579.2.278 1965 Unknown [id number] 2.16.8 40.1.519705.3.579.2.278 1965 Unknown [id number] 2.16.8 40.1.492930.3.579.2.278 1965 Unknown [id number] 2.16.8 40.1.847168.3.579.2.278 1965 Unknown [id number] 2.16.84 0.1.793632.3.579.2.598 1965 Unknown [id number] 2.16.8 40.1.142819.3.579.2.627 1965 Unknown [id number] 2.16.8 40.1.932132.3.579.2.627 1965 Unknown [id number] 2.16.8 40.1.213036.3.579.2.627 1965 Unknown [id number] 2.16.8 40.1.071682.3.579.2.627 1965 Unknown [id number] 2.16.8 40.1.675515.3.579.2.627 1965 Unknown [id number] 2.16.8 40.1.418914.3.579.2.627 1965 Unknown [id number] 2.16.8 40.1.833103.3.579.2.627 1965 Unknown [id number] 2.16.8 40.1.369058.3.579.2.627 1959 Unknown [id number] Medicaid [id number] Medicaid [id number] Unknown [id number] Social History Date Type Detail Facility Start: 05-27-2022 Tobacco smoking status Never s moked tobacco (finding) [facility] Sex Assigned At Male [facility] Functional Status Date Assessment Result Facility 09-11-2022 Functional Status ID band on, Allergy Band on, Call device within reach, Bed in low position, Wheels locked, Upper/Half-Length side-rails up, Safety level maintained [facility] 08-05-2022 Functional Status Assistive Device None [facility] 05-29-2022 Functional Status Room check performed [facility] 05-28-2022 Functional Status [facility] Mental Status Date Assessment Result Facility 09-11-2022 Mental Status Oriented x 4 [facility] 08-05-2022 Mental Status Orientation Oriented x 4 [facility] 08-05-2022 Mental Status [facility] 05-29-2022 Mental Status Orientation Oriented x 4 [facility] 05-28-2022 Mental Status [facility] Clinical Notes 05-31-2021 to 09-11-2022 Note Date & Type Note Facility 09-11-2022 Hospital Discharge instructions Patient Education 09/11/2022 00:56:48 CHEST WALL STRAIN (CUSTOM) Chest Strain You have a chest strain. This happens when the muscles between the ribs stretch and tear. This may occur when you have a severe cough. It may also happen after strenuous lifting or twisting injuries of the upper back. A chest strain usually causes pain when you move or take a deep breath. The strain may take a few days to a few weeks to heal. Home care Follow these guidelines when caring for yourself at home: Rest. Don t do any heavy lifting or strenuous activity. Don t do any activity that causes pain. If you have a severe cough, use a cough syrup with dextromethorphan, unless another cough medicine was prescribed. If you have high blood pressure, check with your health care provider or pharmacist before using an hmty-kzu-prchpsy cough medicine. You may use acetaminophen or ibuprofen to control pain, unless another medicine was prescribed. If you have chronic liver or kidney disease, talk with your provider before using these medicines. Also talk with your provider if you ve had a stomach ulcer or GI bleeding. Follow-up care Follow up with your health care provider, or as advised. When to seek medical advice Call your health care provider right away if any of these occur: A change in the type of pain. This means if it feels different, gets worse, lasts longer, or begins to spread into your shoulder, arm, neck, jaw, or back. Pain doesn t go away in 1 week Shortness of breath, difficulty breathing, or fast breathing Pain gets worse when you breathe Cough with dark-colored sputum (phlegm) or blood Weakness, dizziness, or fainting Fever of 101 F (38.3 C) or higher, or as directed by your health care provider [phone] [employer]. [address] [place] [address]. All rights reserved. This information is not intended as a substitute for professional medical care. Always follow your healthcare professional's instructions. Follow Up Care 09/11/2022 00:43:54 With:JEFFERSON CAM APRN-W[employer] RIGHT[employer] SPECIALIST Address: [address] [facility] [place], [place] [id number]- [phone] When:2-4 days [facility] 09-11-2022 Note ORIGINAL EXAMINATION: ONE XRAY VIEW OF THE CHEST 09/11/2022 1:17 am COMPARISON: 05/20/2022 HISTORY: ORDERING SYSTEM PROVIDED HISTORY: Reason for Exam: left chest wall pain FINDINGS: Cardiomediastinal silhouette is normal. Low lung volumes due to hypoventilation. There is elevation of left hemidiaphragm. No focal consolidation or pneumothorax. Probable trace left pleural effusion with adjacent atelectasis. Bibasilar streaky airspace opacities likely from subsegmental atelectasis. No acute osseous findings. IMPRESSION: Trace left pleural effusion with adjacent atelectasis/consolidation. I have personally reviewed the images of this examination, and agree with the resident's findings and interpretation. Interpreted by: Tung Pleitez MD Preliminary Report By: Deb Joyce Electronically signed By Tung Pleitez MD Dictated Date: 09/11/2022 1:20:28 AM Prelim Date: 09/11/2022 1:24:00 AM Sign Date: 09/11/2022 1:30:06 AM Ordering Provider: [facility] 09-11-2022 Note Discharge Instructions Thank you for allowing [facility] to assist you with your healthcare needs. The following is important discharge information regarding your hospital visit. Diagnosis from Today's Visit Rib/trunk pain-swelling What to Do Next Instructions from Your Care Team Discharge Return to Work, School, or Sports (Return to Work, School, or Sports) - Ordered -- 09/12/22, May return to: work, 09/11/22 0:59:00 EDT Post Acute Orders No qualifying data available. You Need to Schedule the Following Appointments Follow Up with JEFFERSON CAM When Within 2-4 days Where: [address] [place] [address] [place] [address]- [phone] Allergies naproxen Medications Please ask your primary doctor or pharmacist before taking any other medication not listed, including over the counter drugs, herbal medications, vitamins and or supplements as they may interact with your home medications. What How Much When Why Instructions Last Dose New baclofen (baclofen 20 mg oral tablet) 1 tab(s) by mouth Three (3) times a day Duration: 5 Days Printed Prescription New lidocaine topical (Lidoderm 5% topical patch) 1 patch(es) Topical Every day Duration: 7 Days Printed Prescription Unchanged albuterol (albuterol 90 mcg/ inh inhalation powder) 1 puff(s) by inhalation Every 4 hours as needed for as needed Shortness of breath Cough generic please Unchanged allopurinol (allopurinol 300 mg oral tablet) Unchanged benzonatate (benzonatate 100 mg oral capsule) 1 cap by mouth Two (2) times a day Unchanged budesonide (Pulmicort Flexhaler 90 mcg/ inh inhalation powder) 1 puff(s) by inhalation Two (2) times a day Duration: 30 Days Unchanged buPROPion (buPROPion 300 mg/ 24 hours (XL) oral tablet, extended release) Unchanged citalopram (citalopram 40 mg oral tablet) Unchanged montelukast (Singulair 10 mg oral tablet) 1 tab(s) by mouth Once a day Unchanged omeprazole (omeprazole 20 mg oral delayed release capsule) 1 cap by mouth Once a day Unchanged oxybutynin (oxybutynin 5 mg oral tablet) Unchanged potassium chloride (Klor-Con M20 oral tablet, extended release) Unchanged tamsulosin (Flomax 0.4 mg oral capsule) 1 cap by mouth Once a day Kidney stone Unchanged topiramate (topiramate 200 mg oral tablet) Unchanged traZODone (traZODone 100 mg oral tablet) Please take this list to your next doctor s visit. Bring all medications you take, including over the counter medications, herbals and other supplements with you to your doctor s visit. Patients and families are reminded to discard old lists and to update any records with all medication providers or retail pharmacies. Medication Leaflets lidocaine viscous (DAVID irving) Lidocaine Viscous, LidoRxKit, LTA II Kit What is the most important information I should know about lidocaine viscous? Do not use this medicine to treat teething pain in a baby. can occur from the use of this medicine in very young children. Use the smallest amount of this medicine needed to numb or relieve pain. Do not use large amounts of lidocaine viscous. An overdose of numbing medication can cause fatal side effects if too much of the medicine is absorbed through your gums and into your blood. What is lidocaine viscous? Lidocaine is a local anesthetic (numbing medication). It works by blocking nerve signals in your body. Lidocaine viscous is used to treat sores inside the mouth, during dental procedures to numb the gums, and to numb the mouth and throat before a surgery or medical procedure. Lidocaine viscous should not be used to treat teething pain in infants. Lidocaine viscous may also be used for purposes not listed in this medication guide. What should I discuss with my healthcare provider before using lidocaine viscous? An overdose of numbing medication can cause fatal side effects if too much of the medicine is absorbed through your gums and into your blood. This can happen if you apply more than the recommended dose. Do not use lidocaine viscous to treat teething pain in a baby. A baby could accidentally swallow this medicine if it is placed in the mouth. Heart problems, seizures, severe brain injury, and can occur from the use of this medicine in very young children. Always ask a doctor before using any medicine to treat your baby's teething pain. You should not use lidocaine viscous if you are allergic to any type of numbing medicine. Tell your doctor if you have ever had: liver disease; a serious heart condition such as 'AV block'; an allergy to any drugs; or broken, swollen, or damaged skin or gum tissue. Ask a doctor before using this medicine if you are or breast-feeding. Older adults may be more sensitive to the effects of this medicine. How should I use lidocaine viscous? Follow all directions on your prescription label and read all medication guides or instruction sheets. Use the medicine exactly as directed. Improper use of lidocaine viscous may result in . Read and carefully follow any Instructions for Use provided with your medicine. Ask your doctor or pharmacist if you do not understand these instructions. Lidocaine viscous may be applied with your finger tips or a cotton swab, or with the applicator provided with the medicine. Use the smallest amount of this medication needed to numb or relieve pain. Do not use large amounts of lidocaine viscous. Avoid swallowing the medicine while applying it to your gums or the inside of your mouth. Your body may absorb more of this medicine if: you use too much; you swallow the medicine; you apply the medicine to gum tissue that is cut or irritated; or you apply heat to a treated area. Avoid eating within 1 hour after using this medicine inside your mouth or throat. You may have trouble swallowing and choking could occur, especially in a child. Store at room temperature away from moisture and heat. What happens if I miss a dose? Since lidocaine topical is used when needed, you may not be on a dosing schedule. Skip any missed dose if it's almost time for your next dose. What happens if I overdose? Seek emergency medical attention or call the Poison Help line at if anyone has accidentally swallowed the medication. An overdose of numbing medicine can cause fatal side effects if too much of the medicine is absorbed through your gums and into your blood. Overdose symptoms may include uneven heartbeats, seizure (convulsions), slowed breathing, coma, or respiratory failure (breathing stops). Lidocaine applied to the gums is not likely to cause an overdose unless you apply more than the recommended dose. What should I avoid while using lidocaine viscous? Avoid eating, chewing gum, or drinking hot liquids until the feeling in your mouth has returned completely. Chewing while your mouth is numb could result in a bite injury to your tongue, lips, or inside of your cheek. Do not allow this medicine to come into contact with your eyes. If it does, rinse with water. Avoid using other medications on the areas you treat with lidocaine viscous unless your doctor tells you to. What are the possible side effects of lidocaine viscous? Get emergency medical help if you have signs of an allergic reaction: hives; difficulty breathing; swelling of your face, lips, tongue, or throat. Stop using lidocaine viscous and call your doctor at once if you have: drowsiness, depression, confusion, feeling nervous or restless; weakness, slow breathing, slow heart rate; a light-headed feeling, like you might pass out; numbness or cold feeling; vomiting; or blurred vision. Common side effects may include: unusual or unpleasant taste in the mouth; or numbness in places where the medicine is accidentally applied. This is not a complete list of side effects and others may occur. Call your doctor for medical advice about side effects. You may report side effects to FDA at 4-031-FJI-9236. What other drugs will affect lidocaine viscous? Lidocaine viscous is not likely to be affected by other drugs you use. But many drugs can interact with each other. Tell each of your health care providers about all medicines you use, including prescription and qqcc-zrp-oryukzi medicines, vitamins, and herbal products. Where can I get more information? Your pharmacist can provide more information about lidocaine viscous. Remember, keep this and all other medicines out of the reach of children, never share your medicines with others, and use this medication only for the indication prescribed. Every effort has been made to ensure that the information provided by [employer]. ('[employer]') is accurate, up-to-date, and complete, but no guarantee is made to that effect. Drug information contained herein may be time sensitive. [employer] information has been compiled for use by healthcare practitioners and consumers in the [place] and therefore [employer] does not warrant that uses outside of the [place] are appropriate, unless specifically indicated otherwise. [employer] drug information does not endorse drugs, diagnose patients or recommend therapy. [employer] drug information is an informational resource designed to assist licensed healthcare practitioners in caring for their patients and/or to serve consumers viewing this service as a supplement to, and not a substitute for, the expertise, skill, knowledge and judgment of healthcare practitioners. The absence of a warning for a given drug or drug combination in no way should be construed to indicate that the drug or drug combination is safe, effective or appropriate for any given patient. [employer] does not assume any responsibility for any aspect of healthcare administered with the aid of information [employer] provides. The information contained herein is not intended to cover all possible uses, directions, precautions, warnings, drug interactions, allergic reactions, or adverse effects. If you have questions about the drugs you are taking, check with your doctor, nurse or pharmacist. Copyright 7663-3643 [employer]. Version: 3.01. Revision Date: 10/14/2017. lidocaine viscous (LYE santamaria gleason VIS kus) Lidocaine Viscous, LidoRxKit, LTA II Kit What is the most important information I should know about lidocaine viscous? Do not use this medicine to treat teething pain in a baby. can occur from the use of this medicine in very young children. Use the smallest amount of this medicine needed to numb or relieve pain. Do not use large amounts of lidocaine viscous. An overdose of numbing medication can cause fatal side effects if too much of the medicine is absorbed through your gums and into your blood. What is lidocaine viscous? Lidocaine is a local anesthetic (numbing medication). It works by blocking nerve signals in your body. Lidocaine viscous is used to treat sores inside the mouth, during dental procedures to numb the gums, and to numb the mouth and throat before a surgery or medical procedure. Lidocaine viscous should not be used to treat teething pain in infants. Lidocaine viscous may also be used for purposes not listed in this medication guide. What should I discuss with my healthcare provider before using lidocaine viscous? An overdose of numbing medication can cause fatal side effects if too much of the medicine is absorbed through your gums and into your blood. This can happen if you apply more than the recommended dose. Do not use lidocaine viscous to treat teething pain in a baby. A baby could accidentally swallow this medicine if it is placed in the mouth. Heart problems, seizures, severe brain injury, and can occur from the use of this medicine in very young children. Always ask a doctor before using any medicine to treat your baby's teething pain. You should not use lidocaine viscous if you are allergic to any type of numbing medicine. Tell your doctor if you have ever had: liver disease; a serious heart condition such as 'AV block'; an allergy to any drugs; or broken, swollen, or damaged skin or gum tissue. Ask a doctor before using this medicine if you are or breast-feeding. Older adults may be more sensitive to the effects of this medicine. How should I use lidocaine viscous? Follow all directions on your prescription label and read all medication guides or instruction sheets. Use the medicine exactly as directed. Improper use of lidocaine viscous may result in . Read and carefully follow any Instructions for Use provided with your medicine. Ask your doctor or pharmacist if you do not understand these instructions. Lidocaine viscous may be applied with your finger tips or a cotton swab, or with the applicator provided with the medicine. Use the smallest amount of this medication needed to numb or relieve pain. Do not use large amounts of lidocaine viscous. Avoid swallowing the medicine while applying it to your gums or the inside of your mouth. Your body may absorb more of this medicine if: you use too much; you swallow the medicine; you apply the medicine to gum tissue that is cut or irritated; or you apply heat to a treated area. Avoid eating within 1 hour after using this medicine inside your mouth or throat. You may have trouble swallowing and choking could occur, especially in a child. Store at room temperature away from moisture and heat. What happens if I miss a dose? Since lidocaine topical is used when needed, you may not be on a dosing schedule. Skip any missed dose if it's almost time for your next dose. What happens if I overdose? Seek emergency medical attention or call the Poison Help line at if anyone has accidentally swallowed the medication. An overdose of numbing medicine can cause fatal side effects if too much of the medicine is absorbed through your gums and into your blood. Overdose symptoms may include uneven heartbeats, seizure (convulsions), slowed breathing, coma, or respiratory failure (breathing stops). Lidocaine applied to the gums is not likely to cause an overdose unless you apply more than the recommended dose. What should I avoid while using lidocaine viscous? Avoid eating, chewing gum, or drinking hot liquids until the feeling in your mouth has returned completely. Chewing while your mouth is numb could result in a bite injury to your tongue, lips, or inside of your cheek. Do not allow this medicine to come into contact with your eyes. If it does, rinse with water. Avoid using other medications on the areas you treat with lidocaine viscous unless your doctor tells you to. What are the possible side effects of lidocaine viscous? Get emergency medical help if you have signs of an allergic reaction: hives; difficulty breathing; swelling of your face, lips, tongue, or throat. Stop using lidocaine viscous and call your doctor at once if you have: drowsiness, depression, confusion, feeling nervous or restless; weakness, slow breathing, slow heart rate; a light-headed feeling, like you might pass out; numbness or cold feeling; vomiting; or blurred vision. Common side effects may include: unusual or unpleasant taste in the mouth; or numbness in places where the medicine is accidentally applied. This is not a complete list of side effects and others may occur. Call your doctor for medical advice about side effects. You may report side effects to FDA at 2-115-AKG-7218. What other drugs will affect lidocaine viscous? Lidocaine viscous is not likely to be affected by other drugs you use. But many drugs can interact with each other. Tell each of your health care providers about all medicines you use, including prescription and iybd-dgn-nbtohxu medicines, vitamins, and herbal products. Where can I get more information? Your pharmacist can provide more information about lidocaine viscous. Remember, keep this and all other medicines out of the reach of children, never share your medicines with others, and use this medication only for the indication prescribed. Every effort has been made to ensure that the information provided by [employer] ('[employer]') is accurate, up-to-date, and complete, but no guarantee is made to that effect. Drug information contained herein may be time sensitive. [employer] information has been compiled for use by healthcare practitioners and consumers in the [place] and therefore [employer] does not warrant that uses outside of the [place] are appropriate, unless specifically indicated otherwise. [employer] drug information does not endorse drugs, diagnose patients or recommend therapy. [employer] drug information is an informational resource designed to assist licensed healthcare practitioners in caring for their patients and/or to serve consumers viewing this service as a supplement to, and not a substitute for, the expertise, skill, knowledge and judgment of healthcare practitioners. The absence of a warning for a given drug or drug combination in no way should be construed to indicate that the drug or drug combination is safe, effective or appropriate for any given patient. [employer] does not assume any responsibility for any aspect of healthcare administered with the aid of information [employer] provides. The information contained herein is not intended to cover all possible uses, directions, precautions, warnings, drug interactions, allergic reactions, or adverse effects. If you have questions about the drugs you are taking, check with your doctor, nurse or pharmacist. Copyright 0587-1938 [employer]. Version: 3.01. Revision Date: 10/14/2017. Education Materials Chest Strain You have a chest strain. This happens when the muscles between the ribs stretch and tear. This may occur when you have a severe cough. It may also happen after strenuous lifting or twisting injuries of the upper back. A chest strain usually causes pain when you move or take a deep breath. The strain may take a few days to a few weeks to heal. Home care Follow these guidelines when caring for yourself at home: Rest. Don t do any heavy lifting or strenuous activity. Don t do any activity that causes pain. If you have a severe cough, use a cough syrup with dextromethorphan, unless another cough medicine was prescribed. If you have high blood pressure, check with your health care provider or pharmacist before using an neng-ecg-tcnaehd cough medicine. You may use acetaminophen or ibuprofen to control pain, unless another medicine was prescribed. If you have chronic liver or kidney disease, talk with your provider before using these medicines. Also talk with your provider if you ve had a stomach ulcer or GI bleeding. Follow-up care Follow up with your health care provider, or as advised. When to seek medical advice Call your health care provider right away if any of these occur: A change in the type of pain. This means if it feels different, gets worse, lasts longer, or begins to spread into your shoulder, arm, neck, jaw, or back. Pain doesn t go away in 1 week Shortness of breath, difficulty breathing, or fast breathing Pain gets worse when you breathe Cough with dark-colored sputum (phlegm) or blood Weakness, dizziness, or fainting Fever of 101 F (38.3 C) or higher, or as directed by your health care provider [id number] [employer]. [address] [place] [address]. All rights reserved. This information is not intended as a substitute for professional medical care. Always follow your healthcare professional's instructions. Additional Information VACCINATE! IT SAVES LIVES! Members of the community who have not yet received the COVID-19 vaccine and would like to receive it can visit one of [facility] vaccine clinics. There are many vaccine clinic locations within the [facility]. For locations and available times, please visit [email or web address] It is important to note that some COVID mobile vaccine clinics are held outdoors and may be canceled in rainy or stormy conditions. To learn more about pediatric vaccinations (ages 5-11), we invite you to visit the [facility] webpage. [email or web address] [email or web address]-Freq [email or web address] To learn more about the COVID-19 vaccine, we invite you to visit the CDC website for a list of frequently asked questions. https://www.cdc.gov/coronavirus/ 2019-ncov/vaccines/faq.html [facility] Patient Portal Access Instructions: Stay connected with your healthcare team and access your personal medical information anytime with the [facility] Patient Portal. If you would like a full copy of your medical records please contact the [facility] Medical Records Department Thursday through Thursday between 8a.m. and 4:30p.m. Please follow the directions below to access the portal: 1.Access the email account you provided upon registration to the [facility].2.Look for an invitation email from [facility].3.Open the email and access the invitation link: Accept Invitation to [facility]4.Fill in the required banuelos to create your account. Sign into www.[employer] with your username and password that you created in the above steps to stay up to date. You can then view a summary of results, a summary of your visits, and the ability to download your summaries to your computer or send the information securely to a physician. Remember that your healthcare information is confidential, so carefully consider who you will allow to register on the [facility] Patient Portal for access to your information. You can also access the [facility] Patient Portal on the [employer]. Simply click on Health Records under Health Data and then click on the [employer] logo. HOW TO SAFELY DISPOSE OF PRESCRIPTION MEDICATIONS Please use one of the following methods to safely dispose of your unused medications. 1.Use a drug disposal kit: the drug disposal pouch allows you to safely discard your old and unused drugs. Ask your nurse to give you one when you are discharged.2.Visit a local take-back location: Many local pharmacies and police departments have programs that collect old and unwanted prescription drugs. Call your local pharmacy or go to http://TakeLessons.Prosodic/1O6Mk3y to find one close to you.3.Make use of household items: Use cat litter or old coffee grounds to dispose medications if other options are not available. Mix your drugs with these household products, seal them in an airtight container and throw it into the garbage. Call [facility]: [phone] to be sure your drugs can be disposed of in this way. Some medicines may require a different approach.4.Never flush your medications down the toilet. IF YOU HAVE BEEN PRESCRIBED AN OPIOIDS FOR PAIN If you have been prescribed an opioid (such as hydrocodone, oxycodone or morphine), it is critical to understand the possible side effects and risks of opioid pain medications. Even when taken as directed, opioids can have several side effects including: Tolerance, meaning you might need to take more of a medication for the same pain relief. Nausea, vomiting and/or constipation. Sleepiness, dizziness, dry mouth, confusion, depression or itching. Physical dependence, meaning you have withdrawal symptoms when a medication is stopped ? this can develop within a few days. KNOW YOUR RESPONSIBILITIES It is important to know exactly how much and how often to take the opioid pain medications you are prescribed. Never take opioids in higher amounts or more often than prescribed. Do not combine opioids with alcohol or other drugs that cause drowsiness, such as benzodiazepines, also known as benzos, including diazepam and alprazolam, muscle relaxants or sleep aids. Never sell or share prescription opioids. This is illegal. Store opioids in a secure place and out of reach of others (including children, family, friends and visitors). The last page(s) of this document has been signed and retained as a CHART COPY Signatures Patient Education Materials CHEST WALL STRAIN (CUSTOM) Medication Leaflets baclofen (oral), lidocaine viscous My discharge plan and instructions have been reviewed and explained to me and I,ARISTEO MCCALL understand my current condition and have read and understand these discharge instructions. I have received a written copy of the plan/instructions. If I have questions, I am aware that I should contact my doctor. Patient/Account Resolution Expert Signature: Date/Time: Relationship to Patient: Witness Name/Signature: Date/Time: [facility] 09-11-2022 Note ORIGINAL EXAMINATION: ONE XRAY VIEW OF THE CHEST 09/11/2022 1:17 am COMPARISON: 05/20/2022 HISTORY: ORDERING SYSTEM PROVIDED HISTORY: Reason for Exam: left chest wall pain FINDINGS: Cardiomediastinal silhouette is normal. Low lung volumes due to hypoventilation. There is elevation of left hemidiaphragm. No focal consolidation or pneumothorax. Probable trace left pleural effusion with adjacent atelectasis. Bibasilar streaky airspace opacities likely from subsegmental atelectasis. No acute osseous findings. IMPRESSION: Trace left pleural effusion with adjacent atelectasis/consolidation. I have personally reviewed the images of this examination, and agree with the resident's findings and interpretation. Interpreted by: Tung Pleitez MD Preliminary Report By: Deb Joyce Electronically signed By Tung Pleitez MD Dictated Date: 09/11/2022 1:20:28 AM Prelim Date: 09/11/2022 1:24:00 AM Sign Date: 09/11/2022 1:30:06 AM Ordering Provider: [facility] 2001JELANI [facility] 08-05-2022 Hospital Discharge instructions Patient Education 08/05/2022 08:00:46 Kidney Stone w/ Colic Kidney Stone with Pain The sharp cramping pain on either side of your lower back and nausea/vomiting that you have are because of a small stone that has formed in the kidney. It is now passing down a narrow tube (ureter) on its way to your bladder. Once the stone reaches your bladder, the pain will often stop. But it may come back as the stone continues to pass out of the bladder and through the urethra. The stone may pass in your urine stream in one piece. The size may be 1/16 inch to 1/4 inch (1 mm to 6 mm). Or, the stone may break up into rita fragments that you may not even notice. Once you have had a kidney stone, you are at risk of getting another one in the future. There are 4 types of kidney stones. Eighty percent are calcium stones mostly calcium oxalate but also some with calcium phosphate. The other 3 types include uric acid stones, struvite stones (from a preceding infection), and rarely, cystine stones. Most stones will pass on their own, but may take from a few hours to a few days. Sometimes the stone is too large to pass by itself. In that case, the healthcare provider will need to use other ways to remove the stone. These techniques include: Lithotripsy. This uses ultrasound waves to break up the stone. Ureteroscopy. This pushes a basket-like instrument through the urethra and bladder and into the ureter to pull out the stone. Various types of direct surgery through the skin Home care The following are general care guidelines: Drink plenty of fluids. This means at least 12, 8-ounce glasses of fluid mostly water a day. Each time you urinate, do so in a jar. Pour the urine from the jar through the strainer and into the toilet. Continue doing this until 24 hours after your pain stops. By then, if there was a kidney stone, it should pass from your bladder. Some stones dissolve into sand-like particles and pass right through the strainer. In that case, you won t ever see a stone. Save any stone that you find in the strainer and bring it to your healthcare provider to look at. It may be possible to stop certain types of stones from forming. For this reason, it is important to know what kind of stone you have. Try to stay as active as possible. This will help the stone pass. Don't stay in bed unless your pain keeps you from getting up. You may notice a red, pink, or brown color to your urine. This is normal while passing a kidney stone. If you develop pain, you may take ibuprofen or naproxen for pain, unless another medicine was prescribed. If you have chronic liver or kidney disease, talk with your healthcare provider before taking these medicines. Also talk with your provider if you've had a stomach ulcer or GI bleeding. Preventing stones Each year for the next 5 to 7 years, you are at risk that a new stone will form. Your risk is a 50% chance over this time period. The risk is higher if you have a family history of kidney stones or have certain chronic illnesses like hypertension, obesity, or diabetes. But you can make changes to your lifestyle and diet that can lower your risk for another stone. Most kidney stones are made of calcium. The following is advice for preventing another calcium stone. If you don t know the type of stone you have, follow this advice until the cause of your stone is found. Things that help: The most important thing you can do is to drink plenty of fluids each day. See home care above. Eat foods that contain phytates. These include wheat, rice, rye, barley, and beans. Phytates are substances that may lower your risk for any type of stone to form. Eat more fruits and vegetables. Choose those that are high in potassium. Eat foods high in natural citrate like fruit and low-sugar fruit juices. Having too little calcium in your diet can put you at risk for calcium kidney stones. Eat a normal amount of calcium in your diet and talk with your healthcare provider if you are taking calcium supplements. Cutting back on your calcium intake may raise your risk. New research shows that eating calcium-rich and oxalate-rich foods together lowers your risk for stones by binding the minerals in the stomach and intestines before they can reach the kidneys. Limit salt intake to 2 grams (1 teaspoon) per day. Use limited amounts when cooking, and don t add salt at the table. Processed and canned foods are usually high in salt. Spinach, rhubarb, peanuts, cashews, almonds, grapefruit, and grapefruit juice are all high oxalate foods. You should limit how much of these you eat. Or eat them with calcium-rich foods. These include dairy products, dark leafy greens, soy products, and calcium-enriched foods. Reducing the amount of animal meat and high protein foods in your diet may lower your risk for uric acid stones. Avoid excess sugar (sucrose) and fructose (sweetener in many soft drinks) in your diet. If you take vitamin C as a supplement, don't take more than 1,000 mg a day. A dietitian or your healthcare provider can give you information about changes in your diet that will help prevent more kidney stones from forming. Follow-up care Follow up with your healthcare provider, or as advised, if the pain lasts more than 48 hours. Talk with your provider about urine and blood tests to find out the cause of your stone. If you had an X-ray, CT scan, or other diagnostic test, you will be told of any new findings that may affect your care. Call 911 Call 911 if you have any of these: Weakness, dizziness, or fainting When to seek medical advice Call your healthcare provider right away if any of these occur: Pain that is not controlled by the medicine given Repeated vomiting or unable to keep down fluids Fever of 100.4 F (38 C) or higher, or as directed by your healthcare provider Passage of solid red or brown urine (can't see through it) or urine with lots of blood clots Foul-smelling or cloudy urine Unable to pass urine for 8 hours and increasing bladder pressure [id number] [employer]. [address] [place] [address], [place] [address]. All rights reserved. This information is not intended as a substitute for professional medical care. Always follow your healthcare professional's instructions. Follow Up Care 08/05/2022 07:11:45 With:YAMEL WHARTON MD, [facility] Address: [address] [place] [phone] When:2-[address] [facility] Patriciacaryn Carrera 08-05-2022 Emergency department Discharge summary Discharge Instructions Thank you for allowing [facility] to assist you with your healthcare needs. The following is important discharge information regarding your hospital visit. Diagnosis from Today's Visit Kidney stone Flank pain What to Do Next Instructions from Your Care Team No qualifying data available. Post Acute Orders No qualifying data available. You Need to Schedule the Following Appointments Follow Up with YAMEL WHARTON MD, [facility] When Within 2-4 days Where: [address] [place] [address] [address] [place] [phone]- [phone] Allergies naproxen Medications Please ask your primary doctor or pharmacist before taking any other medication not listed, including over the counter drugs, herbal medications, vitamins and or supplements as they may interact with your home medications. What How Much When Why Instructions Last Dose New acetaminophen-oxyCODONE (Percocet 5 mg-325 mg oral tablet) 1 tab(s) by mouth Every 6 hours as needed for for pain Kidney stone Duration: 2 Days Pickup at [facility][id number] Unchanged albuterol (albuterol 90 mcg/ inh inhalation powder) 1 puff(s) by inhalation Every 4 hours as needed for as needed Shortness of breath Cough generic please Unchanged allopurinol (allopurinol 300 mg oral tablet) Unchanged benzonatate (benzonatate 100 mg oral capsule) 1 cap by mouth Two (2) times a day Unchanged budesonide (Pulmicort Flexhaler 90 mcg/ inh inhalation powder) 1 puff(s) by inhalation Two (2) times a day Duration: 30 Days Unchanged buPROPion (buPROPion 300 mg/ 24 hours (XL) oral tablet, extended release) Unchanged citalopram (citalopram 40 mg oral tablet) Unchanged montelukast (Singulair 10 mg oral tablet) 1 tab(s) by mouth Once a day Unchanged omeprazole (omeprazole 20 mg oral delayed release capsule) 1 cap by mouth Once a day Unchanged oxybutynin (oxybutynin 5 mg oral tablet) Unchanged potassium chloride (Klor-Con M20 oral tablet, extended release) Unchanged tamsulosin (Flomax 0.4 mg oral capsule) 1 cap by mouth Once a day Kidney stone Unchanged topiramate (topiramate 200 mg oral tablet) Unchanged traZODone (traZODone 100 mg oral tablet) Pharmacy Information [facility]/pharm[facility] #[id number]: [address] [place], [place] [id number] [phone] Please take this list to your next doctor s visit. Bring all medications you take, including over the counter medications, herbals and other supplements with you to your doctor s visit. Patients and families are reminded to discard old lists and to update any records with all medication providers or retail pharmacies. Education Materials Kidney Stone with Pain The sharp cramping pain on either side of your lower back and nausea/vomiting that you have are because of a small stone that has formed in the kidney. It is now passing down a narrow tube (ureter) on its way to your bladder. Once the stone reaches your bladder, the pain will often stop. But it may come back as the stone continues to pass out of the bladder and through the urethra. The stone may pass in your urine stream in one piece. The size may be 1/16 inch to 1/4 inch (1 mm to 6 mm). Or, the stone may break up into rita fragments that you may not even notice. Once you have had a kidney stone, you are at risk of getting another one in the future. There are 4 types of kidney stones. Eighty percent are calcium stones mostly calcium oxalate but also some with calcium phosphate. The other 3 types include uric acid stones, struvite stones (from a preceding infection), and rarely, cystine stones. Most stones will pass on their own, but may take from a few hours to a few days. Sometimes the stone is too large to pass by itself. In that case, the healthcare provider will need to use other ways to remove the stone. These techniques include: Lithotripsy. This uses ultrasound waves to break up the stone. Ureteroscopy. This pushes a basket-like instrument through the urethra and bladder and into the ureter to pull out the stone. Various types of direct surgery through the skin Home care The following are general care guidelines: Drink plenty of fluids. This means at least 12, 8-ounce glasses of fluid mostly water a day. Each time you urinate, do so in a jar. Pour the urine from the jar through the strainer and into the toilet. Continue doing this until 24 hours after your pain stops. By then, if there was a kidney stone, it should pass from your bladder. Some stones dissolve into sand-like particles and pass right through the strainer. In that case, you won t ever see a stone. Save any stone that you find in the strainer and bring it to your healthcare provider to look at. It may be possible to stop certain types of stones from forming. For this reason, it is important to know what kind of stone you have. Try to stay as active as possible. This will help the stone pass. Don't stay in bed unless your pain keeps you from getting up. You may notice a red, pink, or brown color to your urine. This is normal while passing a kidney stone. If you develop pain, you may take ibuprofen or naproxen for pain, unless another medicine was prescribed. If you have chronic liver or kidney disease, talk with your healthcare provider before taking these medicines. Also talk with your provider if you've had a stomach ulcer or GI bleeding. Preventing stones Each year for the next 5 to 7 years, you are at risk that a new stone will form. Your risk is a 50% chance over this time period. The risk is higher if you have a family history of kidney stones or have certain chronic illnesses like hypertension, obesity, or diabetes. But you can make changes to your lifestyle and diet that can lower your risk for another stone. Most kidney stones are made of calcium. The following is advice for preventing another calcium stone. If you don t know the type of stone you have, follow this advice until the cause of your stone is found. Things that help: The most important thing you can do is to drink plenty of fluids each day. See home care above. Eat foods that contain phytates. These include wheat, rice, rye, barley, and beans. Phytates are substances that may lower your risk for any type of stone to form. Eat more fruits and vegetables. Choose those that are high in potassium. Eat foods high in natural citrate like fruit and low-sugar fruit juices. Having too little calcium in your diet can put you at risk for calcium kidney stones. Eat a normal amount of calcium in your diet and talk with your healthcare provider if you are taking calcium supplements. Cutting back on your calcium intake may raise your risk. New research shows that eating calcium-rich and oxalate-rich foods together lowers your risk for stones by binding the minerals in the stomach and intestines before they can reach the kidneys. Limit salt intake to 2 grams (1 teaspoon) per day. Use limited amounts when cooking, and don t add salt at the table. Processed and canned foods are usually high in salt. Spinach, rhubarb, peanuts, cashews, almonds, grapefruit, and grapefruit juice are all high oxalate foods. You should limit how much of these you eat. Or eat them with calcium-rich foods. These include dairy products, dark leafy greens, soy products, and calcium-enriched foods. Reducing the amount of animal meat and high protein foods in your diet may lower your risk for uric acid stones. Avoid excess sugar (sucrose) and fructose (sweetener in many soft drinks) in your diet. If you take vitamin C as a supplement, don't take more than 1,000 mg a day. A dietitian or your healthcare provider can give you information about changes in your diet that will help prevent more kidney stones from forming. Follow-up care Follow up with your healthcare provider, or as advised, if the pain lasts more than 48 hours. Talk with your provider about urine and blood tests to find out the cause of your stone. If you had an X-ray, CT scan, or other diagnostic test, you will be told of any new findings that may affect your care. Call 911 Call 911 if you have any of these: Weakness, dizziness, or fainting When to seek medical advice Call your healthcare provider right away if any of these occur: Pain that is not controlled by the medicine given Repeated vomiting or unable to keep down fluids Fever of 100.4 F (38 C) or higher, or as directed by your healthcare provider Passage of solid red or brown urine (can't see through it) or urine with lots of blood clots Foul-smelling or cloudy urine Unable to pass urine for 8 hours and increasing bladder pressure [id number] [employer]. [address] [place] [address], [place] [address]. All rights reserved. This information is not intended as a substitute for professional medical care. Always follow your healthcare professional's instructions. Additional Information VACCINATE! IT SAVES LIVES! Members of the community who have not yet received the COVID-19 vaccine and would like to receive it can visit one of [facility] vaccine clinics. There are many vaccine clinic locations within the [facility]. For locations and available times, please visit [email or web address] It is important to note that some COVID mobile vaccine clinics are held outdoors and may be canceled in rainy or stormy conditions. To learn more about pediatric vaccinations (ages 5-11), we invite you to visit the [facility] webpage. [email or web address] To learn more about the COVID-19 vaccine, we invite you to visit the CDC website for a list of frequently asked questions. https://www.cdc.gov/coronavirus/ 2019-ncov/vaccines/faq.html [facility] Patient Portal Access Instructions: Stay connected with your healthcare team and access your personal medical information anytime with the [facility] Patient Portal. If you would like a full copy of your medical records please contact the [facility] Medical Records Department Thursday through Thursday between 8a.m. and 4:30p.m. Please follow the directions below to access the portal: 1.Access the email account you provided upon registration to the hospital.2.Look for an invitation email from [facility].3.Open the email and access the invitation link: Accept Invitation to [facility]4.Fill in the required banuelos to create your account. Sign into www.[employer] with your username and password that you created in the above steps to stay up to date. You can then view a summary of results, a summary of your visits, and the ability to download your summaries to your computer or send the information securely to a physician. Remember that your healthcare information is confidential, so carefully consider who you will allow to register on the [facility] Patient Portal for access to your information. You can also access the [facility] Patient Portal on the [employer] jose. Simply click on Health Records under Health Data and then click on the [facility] logo. HOW TO SAFELY DISPOSE OF PRESCRIPTION MEDICATIONS Please use one of the following methods to safely dispose of your unused medications. 1.Use a drug disposal kit: the drug disposal pouch allows you to safely discard your old and unused drugs. Ask your nurse to give you one when you are discharged.2.Visit a local take-back location: Many local pharmacies and police departments have programs that collect old and unwanted prescription drugs. Call your local pharmacy or go to http://TakeLessons.Prosodic/2V4Xm3h to find one close to you.3.Make use of household items: Use cat litter or old coffee grounds to dispose medications if other options are not available. Mix your drugs with these household products, seal them in an airtight container and throw it into the garbage. Call [facility]: [phone] to be sure your drugs can be disposed of in this way. Some medicines may require a different approach.4.Never flush your medications down the toilet. IF YOU HAVE BEEN PRESCRIBED AN OPIOIDS FOR PAIN If you have been prescribed an opioid (such as hydrocodone, oxycodone or morphine), it is critical to understand the possible side effects and risks of opioid pain medications. Even when taken as directed, opioids can have several side effects including: Tolerance, meaning you might need to take more of a medication for the same pain relief. Nausea, vomiting and/or constipation. Sleepiness, dizziness, dry mouth, confusion, depression or itching. Physical dependence, meaning you have withdrawal symptoms when a medication is stopped ? this can develop within a few days. KNOW YOUR RESPONSIBILITIES It is important to know exactly how much and how often to take the opioid pain medications you are prescribed. Never take opioids in higher amounts or more often than prescribed. Do not combine opioids with alcohol or other drugs that cause drowsiness, such as benzodiazepines, also known as benzos, including diazepam and alprazolam, muscle relaxants or sleep aids. Never sell or share prescription opioids. This is illegal. Store opioids in a secure place and out of reach of others (including children, family, friends and visitors). The last page(s) of this document has been signed and retained as a CHART COPY Signatures Patient Education Materials Kidney Stone w/ Colic Medication Leaflets My discharge plan and instructions have been reviewed and explained to me and I,ARISTEO MCCALL understand my current condition and have read and understand these discharge instructions. I have received a written copy of the plan/instructions. If I have questions, I am aware that I should contact my doctor. Patient/Account Resolution Expert Signature: Date/Time: Relationship to Patient: Witness Name/Signature: Date/Time: [facility] 08-05-2022 Note ORIGINAL EXAMINATION: CT OF THE ABDOMEN AND PELVIS WITHOUT CONTRAST 08/05/2022 7:47 am TECHNIQUE: CT of the abdomen and pelvis was performed without the administration of intravenous contrast. Multiplanar reformatted images are provided for review. Automated exposure control, iterative reconstruction, and/or weight based adjustment of the mA/kV was utilized to reduce the radiation dose to as low as reasonably achievable. COMPARISON: CT abdomen/pelvis 05/28/2022. HISTORY: ORDERING SYSTEM PROVIDED HISTORY: Reason for Exam: LEFT flank pain FINDINGS: Lower Chest: Dependent atelectasis. Organs: Normal liver, spleen, pancreas, gallbladder, and adrenal glands. Mild left hydronephrosis and moderate obstructive perinephric stranding secondary to a 5 mm calculus in the distal ureter, just proximal to the ureterovesicular junction. Additional left renal calculi measure up to 3 mm. No right renal calculi or hydronephrosis. GI/Bowel: Stable small hiatal hernia. Small and large bowel are normal in caliber. Normal appendix. Descending and sigmoid diverticula without diverticulitis. Pelvis: No bladder wall thickening or intraluminal calculi. Mildly enlarged prostate at 5.6 cm. Peritoneum/Retroperitoneum: No free fluid or air. Nonaneurysmal aorta. No lymphadenopathy. Bones/Soft Tissues: Unchanged right iliac lesion. 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 Small bilateral fat containing inguinal hernias and tiny fat containing umbilical hernia. Stable mild supraumbilical rectus diastasis. IMPRESSION: Mild left hydronephrosis and obstructive perinephric stranding secondary to a 5 mm calculus in the distal ureter, just proximal to the UVJ. Additional nonobstructive left nephrolithiasis. Other chronic findings as above. I have personally reviewed the images of this examination, and agree with the resident's findings and interpretation. Interpreted by: Tung Pleitez MD Preliminary Report By: Moise Ling Electronically signed By Tung Pleitez MD Dictated Date: 08/05/2022 7:49:09 AM Prelim Date: 08/05/2022 7:56:43 AM Sign Date: 08/05/2022 7:57:47 AM Ordering Provider: [facility] 08-05-2022 Note ORIGINAL EXAMINATION: CT OF THE ABDOMEN AND PELVIS WITHOUT CONTRAST 08/05/2022 7:47 am TECHNIQUE: CT of the abdomen and pelvis was performed without the administration of intravenous contrast. Multiplanar reformatted images are provided for review. Automated exposure control, iterative reconstruction, and/or weight based adjustment of the mA/kV was utilized to reduce the radiation dose to as low as reasonably achievable. COMPARISON: CT abdomen/pelvis 05/28/2022. HISTORY: ORDERING SYSTEM PROVIDED HISTORY: Reason for Exam: LEFT flank pain FINDINGS: Lower Chest: Dependent atelectasis. Organs: Normal liver, spleen, pancreas, gallbladder, and adrenal glands. Mild left hydronephrosis and moderate obstructive perinephric stranding secondary to a 5 mm calculus in the distal ureter, just proximal to the ureterovesicular junction. Additional left renal calculi measure up to 3 mm. No right renal calculi or hydronephrosis. GI/Bowel: Stable small hiatal hernia. Small and large bowel are normal in caliber. Normal appendix. Descending and sigmoid diverticula without diverticulitis. Pelvis: No bladder wall thickening or intraluminal calculi. Mildly enlarged prostate at 5.6 cm. Peritoneum/Retroperitoneum: No free fluid or air. Nonaneurysmal aorta. No lymphadenopathy. Bones/Soft Tissues: Unchanged right iliac lesion. 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 Small bilateral fat containing inguinal hernias and tiny fat containing umbilical hernia. Stable mild supraumbilical rectus diastasis. IMPRESSION: Mild left hydronephrosis and obstructive perinephric stranding secondary to a 5 mm calculus in the distal ureter, just proximal to the UVJ. Additional nonobstructive left nephrolithiasis. Other chronic findings as above. I have personally reviewed the images of this examination, and agree with the resident's findings and interpretation. Interpreted by: Tung Pleitez MD Preliminary Report By: Moise Ling Electronically signed By Tung Pleitez MD Dictated Date: 08/05/2022 7:49:09 AM Prelim Date: 08/05/2022 7:56:43 AM Sign Date: 08/05/2022 7:57:47 AM Ordering Provider: SHAMEKA ANDERSON [facility] 05-31-2022 Note . MICRO - Microbiology PROCEDURE: Urine Culture [*1] SOURCE: Urine, Clean Catch BODY SITE: COLLECTED DATE/TIME: 05/28/2022 21:57 EST RECEIVED DATE/TIME: 05/29/2022 14:05 EST START DATE/TIME: 05/29/2022 14:05 EST FREE TEXT SOURCE: FINAL REPORTS Final Report [] Verified Date/Time/Personnel: 05/31/2022 09:14 EST No growth at 48 hours. PRELIMINARY REPORTS Preliminary Report [] Verified Date/Time/Personnel: 05/30/2022 10:04 EST No growth to date Performing Locations *1: This test was performed at: [facility], [address] [place] [address], [facility] , [facility] ([place]) 05-29-2022 Hospital Discharge instructions Patient Education 05/28/2022 22:33:12 Preventing Kidney Stones Preventing Kidney Stones If you ve had a kidney stone, you may worry that you ll have another. Removing or passing your stone doesn t prevent future stones. But with your healthcare provider s help, you can reduce your risk of forming new stones. Follow up with your healthcare provider to help find new stones. You may need follow-up every 3 months to a year for a lifetime. Drink lots of water Staying well-hydrated is the best way to reduce your risk of future stones. Drink 8 12-ounce glasses of water daily. Have 2 with each meal and 2 between meals. Try keeping a pitcher of water nearby during the day and at night. Take medicines if needed Medicines, including vitamins and minerals, may be prescribed for certain types of stones. You may want to write your doses and medicine times on a calendar. Some medicines decrease stone-forming chemicals in your blood. Others help prevent those chemicals from crystallizing in urine. Still others help keep a normal acid balance in your urine. Follow your prescribed diet Your healthcare provider will tell you which foods contain the chemicals you should avoid. Your healthcare provider may also suggest talking to a dietitian. He or she can help you plan meals you ll enjoy. These meals won t put you at risk for future stones. You may be told to limit certain foods, depending on which type of stones you ve had. You should limit the amount of salt in your food to about 2 grams a day. This will help prevent most types of kidney stones. Make sure you get an adequate amount of calcium in your diet. For calcium oxalate stones: Limit animal protein, such as meat, eggs, and fish. Limit grapefruit juice and alcohol. Limit high-oxalate foods (such as cola, tea, chocolate, spinach, rhubarb, wheat bran, and peanuts). For uric acid stones: Limit high-purine foods, such as mushrooms, peas, beans, anchovies, meat, poultry, shellfish, and organ meats. These foods increase uric acid production. For cystine stones: Limit high-methionine foods (fish is the most common, but eggs and meats, also). These foods increase production of cystine. 7024-[address] [employer] [place] [address]. All rights reserved. This information is not intended as a substitute for professional medical care. Always follow your healthcare professional's instructions. Follow Up Care 05/28/2022 21:27:56 With:SUNNY BILL MD Address: [facility] [address] [place] [address] [address] [place] [address]- When:2-4 days [facility] 05-28-2022 Note Discharge Instructions Thank you for allowing [facility] to assist you with your healthcare needs. The following is important discharge information regarding your hospital visit. Diagnosis from Today's Visit Left flank pain History of kidney stones What to Do Next Instructions from Your Care Team Discharge Return to Work, School, or Sports (Return to Work, School, or Sports) - Ordered -- 05/30/22, May return to: work, 05/28/22 22:47:00 EST Post Acute Orders No qualifying data available. You Need to Schedule the Following Appointments Follow Up with SUNNY BILL MD When Within 2-4 days Where: [facility] [place] [address] [place] [address]- Allergies naproxen Medications Please ask your primary doctor or pharmacist before taking any other medication not listed, including over the counter drugs, herbal medications, vitamins and or supplements as they may interact with your home medications. What How Much When Why Instructions Last Dose Unchanged albuterol (albuterol 90 mcg/ inh inhalation powder) 1 puff(s) by inhalation Every 4 hours as needed for as needed Shortness of breath Cough generic please Unchanged allopurinol (allopurinol 300 mg oral tablet) Unchanged benzonatate (benzonatate 100 mg oral capsule) 1 cap by mouth Two (2) times a day Unchanged buPROPion (buPROPion 300 mg/ 24 hours (XL) oral tablet, extended release) Unchanged citalopram (citalopram 40 mg oral tablet) Unchanged montelukast (Singulair 10 mg oral tablet) 1 tab(s) by mouth Once a day Unchanged omeprazole (omeprazole 20 mg oral delayed release capsule) 1 cap by mouth Once a day Unchanged oxybutynin (oxybutynin 5 mg oral tablet) Unchanged potassium chloride (Klor-Con M20 oral tablet, extended release) Unchanged tamsulosin (Flomax 0.4 mg oral capsule) 1 cap by mouth Once a day Kidney stone Unchanged topiramate (topiramate 200 mg oral tablet) Unchanged traZODone (traZODone 100 mg oral tablet) Please take this list to your next doctor s visit. Bring all medications you take, including over the counter medications, herbals and other supplements with you to your doctor s visit. Patients and families are reminded to discard old lists and to update any records with all medication providers or retail pharmacies. Education Materials Preventing Kidney Stones If you ve had a kidney stone, you may worry that you ll have another. Removing or passing your stone doesn t prevent future stones. But with your healthcare provider s help, you can reduce your risk of forming new stones. Follow up with your healthcare provider to help find new stones. You may need follow-up every 3 months to a year for a lifetime. Drink lots of water Staying well-hydrated is the best way to reduce your risk of future stones. Drink 8 12-ounce glasses of water daily. Have 2 with each meal and 2 between meals. Try keeping a pitcher of water nearby during the day and at night. Take medicines if needed Medicines, including vitamins and minerals, may be prescribed for certain types of stones. You may want to write your doses and medicine times on a calendar. Some medicines decrease stone-forming chemicals in your blood. Others help prevent those chemicals from crystallizing in urine. Still others help keep a normal acid balance in your urine. Follow your prescribed diet Your healthcare provider will tell you which foods contain the chemicals you should avoid. Your healthcare provider may also suggest talking to a dietitian. He or she can help you plan meals you ll enjoy. These meals won t put you at risk for future stones. You may be told to limit certain foods, depending on which type of stones you ve had. You should limit the amount of salt in your food to about 2 grams a day. This will help prevent most types of kidney stones. Make sure you get an adequate amount of calcium in your diet. For calcium oxalate stones: Limit animal protein, such as meat, eggs, and fish. Limit grapefruit juice and alcohol. Limit high-oxalate foods (such as cola, tea, chocolate, spinach, rhubarb, wheat bran, and peanuts). For uric acid stones: Limit high-purine foods, such as mushrooms, peas, beans, anchovies, meat, poultry, shellfish, and organ meats. These foods increase uric acid production. For cystine stones: Limit high-methionine foods (fish is the most common, but eggs and meats, also). These foods increase production of cystine. 9050-3704 [employer]. [address] [place] [address], [place] [address]. All rights reserved. This information is not intended as a substitute for professional medical care. Always follow your healthcare professional's instructions. Additional Information VACCINATE! IT SAVES LIVES! Members of the community who have not yet received the COVID-19 vaccine and would like to receive it can visit one of [facility] vaccine clinics. There are many vaccine clinic locations within the [facility]. For locations and available times, please visit [email or web address]. It is important to note that some COVID mobile vaccine clinics are held outdoors and may be canceled in rainy or stormy conditions. To learn more about pediatric vaccinations (ages 5-11), we invite you to visit the [facility] webpage. [email or web address] To learn more about the COVID-19 vaccine, we invite you to visit the [facility] website for a list of frequently asked questions. [email or web address] [facility] Patient Portal Access Instructions: Stay connected with your healthcare team and access your personal medical information anytime with the [facility] Patient Portal. If you would like a full copy of your medical records please contact the [facility] Medical Records Department Thursday through Thursday between 8a.m. and 4:30p.m. Please follow the directions below to access the portal: 1.Access the email account you provided upon registration to the hospital.2.Look for an invitation email from [facility].3.Open the email and access the invitation link: Accept Invitation to [facility].Fill in the required banuelos to create your account. Sign into www.[employer] with your username and password that you created in the above steps to stay up to date. You can then view a summary of results, a summary of your visits, and the ability to download your summaries to your computer or send the information securely to a physician. Remember that your healthcare information is confidential, so carefully consider who you will allow to register on the [facility] Patient Portal for access to your information. You can also access the [facility] Patient Portal on the [employer] jose. Simply click on Health Records under Health Data and then click on the [facility] logo. HOW TO SAFELY DISPOSE OF PRESCRIPTION MEDICATIONS Please use one of the following methods to safely dispose of your unused medications. 1.Use a drug disposal kit: the drug disposal pouch allows you to safely discard your old and unused drugs. Ask your nurse to give you one when you are discharged.2.Visit a local take-back location: Many local pharmacies and police departments have programs that collect old and unwanted prescription drugs. Call your local pharmacy or go to http://TakeLessons.Prosodic/2C0Vz9o to find one close to you.3.Make use of household items: Use cat litter or old coffee grounds to dispose medications if other options are not available. Mix your drugs with these household products, seal them in an airtight container and throw it into the garbage. Call [facility]: [phone] to be sure your drugs can be disposed of in this way. Some medicines may require a different approach.4.Never flush your medications down the toilet. IF YOU HAVE BEEN PRESCRIBED AN OPIOIDS FOR PAIN If you have been prescribed an opioid (such as hydrocodone, oxycodone or morphine), it is critical to understand the possible side effects and risks of opioid pain medications. Even when taken as directed, opioids can have several side effects including: Tolerance, meaning you might need to take more of a medication for the same pain relief. Nausea, vomiting and/or constipation. Sleepiness, dizziness, dry mouth, confusion, depression or itching. Physical dependence, meaning you have withdrawal symptoms when a medication is stopped ? this can develop within a few days. KNOW YOUR RESPONSIBILITIES It is important to know exactly how much and how often to take the opioid pain medications you are prescribed. Never take opioids in higher amounts or more often than prescribed. Do not combine opioids with alcohol or other drugs that cause drowsiness, such as benzodiazepines, also known as benzos, including diazepam and alprazolam, muscle relaxants or sleep aids. Never sell or share prescription opioids. This is illegal. Store opioids in a secure place and out of reach of others (including children, family, friends and visitors). The last page(s) of this document has been signed and retained as a CHART COPY Signatures Patient Education Materials Preventing Kidney Stones Medication Leaflets My discharge plan and instructions have been reviewed and explained to me and I,ARISTEO MCCALL understand my current condition and have read and understand these discharge instructions. I have received a written copy of the plan/instructions. If I have questions, I am aware that I should contact my doctor. Patient/Account Resolution Expert Signature: Date/Time: Relationship to Patient: Witness Name/Signature: Date/Time: [facility] 05-28-2022 Note ORIGINAL EXAMINATION: CT OF THE ABDOMEN AND PELVIS WITHOUT CONTRAST 05/28/2022 10:13 pm TECHNIQUE: CT of the abdomen and pelvis was performed without the administration of intravenous contrast. Multiplanar reformatted images are provided for review. Automated exposure control, iterative reconstruction, and/or weight based adjustment of the mA/kV was utilized to reduce the radiation dose to as low as reasonably achievable. COMPARISON: CT abdomen and pelvis August 16, 2020 HISTORY: ORDERING SYSTEM PROVIDED HISTORY: Reason for Exam: BILATERAL flank pain FINDINGS: Scattered areas of scarring and/or atelectasis within the visualized lungs bilaterally. Calcified granulomas bilaterally. Additional probably stable noncalcified bilateral pulmonary nodules measuring up to 4 mm within the lingula, which require no further follow-up. The unenhanced liver, pancreas and adrenal glands are grossly within normal limits. Stable splenic hypodensities. The gallbladder is present. The kidneys are symmetric. Numerous nonobstructing left renal calculi. No hydronephrosis. The colon and small bowel are normal in caliber. The appendix is within normal limits. There is a tiny hiatal hernia. No gross free air, ascites or pathologically enlarged lymph nodes. The aorta is normal in caliber. The prostate is enlarged and contains calcifications. Bladder is grossly within normal limits. No acute osseous abnormality. Degenerative changes are seen within the spine. Tiny fat containing umbilical hernia. Right iliac lesion, unchanged. IMPRESSION: 1. No acute process, specifically obstructive uropathy. 2. Nonobstructing left renal calculi. Interpreted by: Deidre Garces MD Preliminary Report By: Deidre Garces MD Electronically signed By Deidre Garces MD Dictated Date: 05/28/2022 10:15:26 PM Prelim Date: 05/28/2022 10:24:39 PM Sign Date: 05/28/2022 10:24:39 PM Ordering Provider: [facility] 05-28-2022 Note ORIGINAL EXAMINATION: CT OF THE ABDOMEN AND PELVIS WITHOUT CONTRAST 05/28/2022 10:13 pm TECHNIQUE: CT of the abdomen and pelvis was performed without the administration of intravenous contrast. Multiplanar reformatted images are provided for review. Automated exposure control, iterative reconstruction, and/or weight based adjustment of the mA/kV was utilized to reduce the radiation dose to as low as reasonably achievable. COMPARISON: CT abdomen and pelvis August 16, 2020 HISTORY: ORDERING SYSTEM PROVIDED HISTORY: Reason for Exam: BILATERAL flank pain FINDINGS: Scattered areas of scarring and/or atelectasis within the visualized lungs bilaterally. Calcified granulomas bilaterally. Additional probably stable noncalcified bilateral pulmonary nodules measuring up to 4 mm within the lingula, which require no further follow-up. The unenhanced liver, pancreas and adrenal glands are grossly within normal limits. Stable splenic hypodensities. The gallbladder is present. The kidneys are symmetric. Numerous nonobstructing left renal calculi. No hydronephrosis. The colon and small bowel are normal in caliber. The appendix is within normal limits. There is a tiny hiatal hernia. No gross free air, ascites or pathologically enlarged lymph nodes. The aorta is normal in caliber. The prostate is enlarged and contains calcifications. Bladder is grossly within normal limits. No acute osseous abnormality. Degenerative changes are seen within the spine. Tiny fat containing umbilical hernia. Right iliac lesion, unchanged. IMPRESSION: 1. No acute process, specifically obstructive uropathy. 2. Nonobstructing left renal calculi. Interpreted by: Deidre Garces MD Preliminary Report By: Deidre Garces MD Electronically signed By Deidre Garces MD Dictated Date: 05/28/2022 10:15:26 PM Prelim Date: 05/28/2022 10:24:39 PM Sign Date: 05/28/2022 10:24:39 PM Ordering Provider: [facility] 05-31-2021 Note HNO ID: [id number] Author: Deidre Ortiz APRN.[employer] Service: ? Author Type: Nurse Practitioner Type: Progress Notes Filed: 05/31/2021 12:55 PM Note Text: Telemedicine Visit - Distance Health Virtual Visit Note PAST MEDICAL HISTORY Diagnosis Date - Atherosclerosis of osage arteries of extremity with intermittent claudication (HCC) - Blood pressure elevated without history of HTN - Brachial plexus lesions - Depression not effective at 10mg dose. no motivation - Family history of heart disease father at age 57 - Gout of multiple sites - High risk medication use - Idiopathic peripheral neuropathy - Medial epicondylitis, right elbow - Nocturnal leg cramps - Prostatitis - Restless leg - Sleep apnea PAST SURGICAL HISTORY Procedure Laterality Date - SHOULDER SURGERY HX Left 2013 rotator cuff FAMILY HISTORY Problem Relation Age of Onset - Ischemic Heart Disease Father - other (myocardial infarction (cause of )) Father 57 - other (Other,dementia) Mother - other (Other) Sister - Depression Brother - Alcohol/Drug Paternal Grandfather Social History Tobacco Use - Smoking status: Never Smoker - Smokeless tobacco: Never Used Substance Use Topics - Alcohol use: No - Drug use: No Current Outpatient Medications Medication Sig - oxybutynin XL (DITROPAN XL) 5 mg 24 hr tablet take 1 tablet by mouth once daily - doxepin capsule 10 mg take 2 capsules by mouth daily at bedtime - citalopram (CELEXA) 40 mg tablet Take 1 tablet by mouth once daily. - buPROPion XL (WELLBUTRIN XL) 300 mg 24 hr tablet Take 1 tablet by mouth once daily. - allopurinol (ZYLOPRIM) 300 mg tablet Take 1 tablet by mouth once daily. - atorvastatin (LIPITOR) 10 mg tablet TAKE 1 TABLET BY MOUTH EVERY DAY - sildenafil (VIAGRA) 100 mg tablet Take 1 tablet by mouth as needed. 30-60 minutes before sexual intercourse. - clonazePAM (KLONOPIN) 1 mg tablet Take 1 mg by mouth at bedtime as needed. Take in combo with 0.5 mg. - topiramate (TOPAMAX) 100 mg tablet Take 100 mg by mouth once daily. - aspirin, enteric coated (ASPIRIN, ENTERIC COATED) 81 mg EC tablet 81 mg once daily. - clonazePAM (KLONOPIN) 0.5 mg tablet Take 0.5 mg by mouth at bedtime as needed. Take in combo with 1 mg. No current facility-administered medications for this visit. ALLERGIES No Known Allergies Video Exam (Examination performed via Video enabled technology) General appearance: Alert, oriented, pleasant, in NAD :Yes Ill appearing :No Lethargic appearing :No Eyes: Sclera clear :Yes Conjunctiva without erythema :Yes Ears: Tragus / outer ear tenderness by self palpation :No Oropharynx: normal, no erythema Frontal sinus tenderness by self palpation;No Maxillary sinus tenderness by self palpation :No Tender cervical adenopathy by self palpation :No Respiratory distress :No Coughing noted :No Audible wheezing noted :No ASSESSMENT/PLAN: Aristeo Mccall is a 55 year old year old male who presents for the past 11 days with symptoms that are:improving. Symptoms include: Fatigue Positive for Cough and Nausea, Negative for Fever, Cough, SOB, Nasal congestion, Face pain/pressure, Headache, Otalgia and Sore throat He tested positive for covid-19 Last Thursday. He took a home test Per the pt. All symptoms have improved. He feels well enough to RTW. Requests RTW note Oral intake: eating and drinking OTC meds/remedies that patient has tried: fluids, rest. 1. Lab test positive for detection of COVID-19 virus - ICD9: 079.89, ICD10: U07.1 Pt. Is afebrile. Stable. NAD. Significant improvement in symptoms. Meets clinical criteria for RTW. Discussed that he should continue to wear a mask until symptom resolution. Work note/letter provided. Deidre Ortiz APRN.JL If you let us know who your primary care provider is, we will send them a notification of today?s visit through our electronic medical records system. Since not all providers have access to our notifications, we strongly encourage you to share the following record of today?s visit with your primary care provider at your next visit. This will help in providing you the best care. If you do not have an established Primary Care physician and would like to continue care with a [facility] Virtual Primary Care physician, please ask your provider to place a Establish Primary Care order. Use [employer] to manage your care, wherever you are, 24/11, on your mobile device or computer. [facility] system[facility] TechnologiesIngage[facility] connects you to [facility] so you can access all your health information in one place and also schedule and request virtual appointments with primary care providers. [facility] Evaluation + Plan note Future Appointments Appointment Date:06/27/2022 01:30:00 PM Scheduled Provider:JEFFERSON CAM Location:[facility] [facility] App[facility] Type:PC OV Diagnostic Tests PendingUrine Culture 05/28/22 [facility] Evaluation + Plan note Future Appointments Appointment Date:12/26/2022 11:30:00 AM Scheduled Provider:JEFFERSON CAM Location:[facility] Appointment Type:PC OV [facility] Evaluation + Plan note Future Appointments Appointment Date:01/09/2023 02:30:00 PM Scheduled Provider:JEFFERSON CAM APRN-JL Location:[facility] Appointment Type:PC OV [facility] Hospital course Narrative No data available for this section [facility] Hospital Discharge instructions No data available for this section [facility] Progress note No data available for this section [facility] Summary Purpose Family History No Family History Records FoundNo Family History Records FoundNo Family History Records FoundNo Family History Records Found No data available for this section No Family History Records Found Advance Directives No Advanced Directives Records FoundNo Advanced Directives Records FoundNo Advanced Directives Records FoundNo Advanced Directives Records FoundNo Advanced Directives Records Found Additional Source Comments (unrecognized sect ion and content) No Status Records FoundNo Status Records FoundNo Status Records FoundNo Status Records FoundNo Status Records Found INFORMATION SOURCE (unrecogn ized section and content) DATE CREATED AUTHOR AUTHOR'S ORGANIZ ATION 11/13/2018 [facility] DATE CREATED AUTHOR AUTHOR'S ORGANIZ ATION 04/16/2019 [facility] DATE CREATED AUTHOR AUTHOR'S ORGANIZ ATION 06/07/2021 [facility] DATE CREATED AUTHOR AUTHOR'S ORGANIZ ATION 02/27/2023 [facility] ([place]) Care Team (unrecognized sect ion and content) Care Team Personnel Name: SUNNY BILL MD Member Role: Primary Care Physician Address: Address: [facility] [address] [place] [address]- [place] Name: EDY WEBSTER Position: Resident Member Role: Resident Address: Address: [address] [facility] [place] [address]- [place] Name: REYNALDO STAFFORD MD Position: ED Physician Member Role: ED Physician Address: Address: [address] [place] [address]- [place] Name: Rufino, HIM: Interior Horticulturist Elizabeth Position: HIM: Coders Member Role: HIM: Coders Name: Nina Cosme RN Position: RN Member Role: ED RN Care Team Related Persons Name: KARLA MCCALL Patient Care team informatio n (unrecognized section and content) Care Team Personnel Name: SUNNY BILL MD Member Role: Primary Care Physician Address: Address: [facility] [address] [facility] [address] [place] [address]- Care Team Related Persons Name: KARLA MCCALL Care Team Personnel Name: SUNNY BILL MD Member Role: Primary Care Physician Address: Address: [facility] [address] [facility] [address] [place] [address]- [place] Name: SHAMEKA ANDERSON MD Position: ED Physician Member Role: ED Physician Address: Address: [facility] [address] [place] [address]- Care Team Related Persons Name: KARLA MCCALL Care Team Personnel Name: JEFFERSON CAM CO CHAIRMAN-WATER RIGHTS SPECIALIST Position: P4 Advanced Supervisor Wet Pour Member Role: Primary Care Physician Address: Address: [address] [place] [id number]- Name: ÁLVARO AGUILAR DO Position: ED Physician Member Role: ED Physician Address: Address: [facility] [address] [place] [address]- [place] Care Team Related Persons Name: KARLA MCCALL Care Team Personnel Name: JEFFERSON CAM CO CHAIRMAN-WATER RIGHTS SPECIALIST Position: P4 Advanced Supervisor Wet Pour Member Role: Primary Care Physician Address: Address: [address] [place] [address] Care Team Related Persons Name: KARLA MCCALL FOR RECORDS PERTAINING TO PATIENTS WHO ARE OR HAVE BEEN ENROLLED IN A CHEMICAL DEPENDENCY/SUBSTANCEABUSE PROGRAM, SOME INFORMATION MAY BE OMITTED. This clinical summary was aggregated from multiple sources. Caution should be exercised in using it in the provision of clinical care. This summary normalizes information from multiple sources, and as a consequence, information in this document may materially change the coding, format and clinical context of patient data. In addition, data may be omitted in some cases. CLINICAL DECISIONS SHOULD BE BASED ON THE PRIMARY CLINICAL RECORDS. [facility] provides no warranty or guarantee of the accuracy or completeness of information in this document.
== END | disposition home or self-care (01) ==
PROVIDERS: PCP Nurse Practitioner Adult Health; Referring Provider Urology; Visit Provider Urology
DX: R10.84 Generalized abdominal pain (principal); Z87.442 Personal history of urinary calculi
CPT/HCPCS: 74018